=== PATIENT | male | born 1935 | race Caucasian/White ===

== ENCOUNTER 2016-10-05 09:00 | Outpatient (CLI) | payer MEDICARE | END 2016-10-05 09:01 | disposition home or self-care (01) | DX: C61 Malignant neoplasm of prostate (principal) ==

== ENCOUNTER 2016-11-19 10:45 | Outpatient (CLI) | payer MEDICARE | END 2016-11-19 10:46 | disposition home or self-care (01) | DX: C61 Malignant neoplasm of prostate (principal) ==

== ENCOUNTER 2016-12-10 10:31 | Outpatient (CLI) | payer MEDICARE ==
[2016-12-10 10:45] LABS: BASOPHILS % (AUTO) 0.9 %; EOSINOPHILS # (AUTO) 0.3 10^3/uL (0.0-0.7); EOSINOPHILS % (AUTO) 5.5 %; HCT - HEMATOCRIT 34.8 % (42.0-52.0); HGB - HEMOGLOBIN 11.5 g/dL (14.0-18.0); LYMPHOCYTES # (AUTO) 0.8 10^3/uL (1.5-3.5); LYMPHOCYTES % (AUTO) 14.5 %; MEAN CORPUSCULAR HEMOGLOBIN 31.9 pg (27.0-31.0); MEAN CORPUSCULAR HGB CONC 33.1 g/dL (32.0-36.0); MEAN CORPUSCULAR VOLUME 96.2 fL (80.0-94.0); MONOCYTES # (AUTO) 0.4 10^3/uL (0.0-1.0); MONOCYTES % (AUTO) 7.4 %; NEUTROPHILS % (AUTO) 71.7 %; RED BLOOD COUNT 3.61 10^6/uL (4.70-6.10); RED CELL DISTRIBUTION WIDTH 16.4 % (12.0-15.0); UNCORRECTED WHITE BLOOD COUNT 5.6 x10^3/uL; WHITE BLOOD COUNT 5.6 x10^3/uL (4.8-10.8)
== END 2016-12-10 10:32 | disposition home or self-care (01) ==
LOC: LAB 10:31
DX: C61 Malignant neoplasm of prostate (principal)
CPT/HCPCS: 36415; 85025

== ENCOUNTER 2017-02-08 13:36 | Outpatient (CLI) | payer MEDICARE ==
[2017-02-08 14:13] LABS: BASOPHILS % (AUTO) 0.5 %; EOSINOPHILS # (AUTO) 0.4 10^3/uL (0.0-0.7); EOSINOPHILS % (AUTO) 5.3 %; LYMPHOCYTES # (AUTO) 1.3 10^3/uL (1.5-3.5); LYMPHOCYTES % (AUTO) 18.6 %; MEAN CORPUSCULAR HEMOGLOBIN 31.1 pg (27.0-31.0); MEAN CORPUSCULAR HGB CONC 33.3 g/dL (32.0-36.0); MEAN CORPUSCULAR VOLUME 93.4 fL (80.0-94.0); MONOCYTES # (AUTO) 0.5 10^3/uL (0.0-1.0); MONOCYTES % (AUTO) 7.4 %; NEUTROPHILS # (AUTO) 4.7 10^3/uL (1.5-6.6); NEUTROPHILS % (AUTO) 68.2 %; RED BLOOD COUNT 3.85 10^6/uL (4.70-6.10); RED CELL DISTRIBUTION WIDTH 17.4 % (12.0-15.0); UNCORRECTED WHITE BLOOD COUNT 6.9 x10^3/uL; WHITE BLOOD COUNT 6.9 x10^3/uL (4.8-10.8)
[2017-02-08 14:16] LABS: ALBUMIN/GLOBULIN RATIO 1.3 (1.0-2.2); BILIRUBIN,TOTAL 0.7 mg/dL (0.2-1.0); CALCIUM 9.4 mg/dL (8.5-10.3); CREATININE 1.1 mg/dL (0.6-1.2); TOTAL PROTEIN 6.7 g/dL (6.7-8.2)
== END 2017-02-08 13:37 | disposition home or self-care (01) ==
LOC: LAB 13:36
DX: C61 Malignant neoplasm of prostate (principal); M79.89 Other specified soft tissue disorders
CPT/HCPCS: 36415; 80053; 84153; 85025

== ENCOUNTER 2017-03-15 13:44 | Outpatient (CLI) | payer MEDICARE ==
[2017-03-15 14:12] LABS: BASOPHILS % (AUTO) 0.7 %; EOSINOPHILS # (AUTO) 0.2 10^3/uL (0.0-0.7); HCT - HEMATOCRIT 37.4 % (42.0-52.0); HGB - HEMOGLOBIN 12.5 g/dL (14.0-18.0); LYMPHOCYTES % (AUTO) 16.5 %; MEAN CORPUSCULAR HEMOGLOBIN 31.7 pg (27.0-31.0); MEAN CORPUSCULAR HGB CONC 33.4 g/dL (32.0-36.0); MEAN CORPUSCULAR VOLUME 94.7 fL (80.0-94.0); MEAN PLATELET VOLUME 7.9 fL (7.4-11.4); MONOCYTES # (AUTO) 0.4 10^3/uL (0.0-1.0); MONOCYTES % (AUTO) 6.7 %; NEUTROPHILS # (AUTO) 4.6 10^3/uL (1.5-6.6); NEUTROPHILS % (AUTO) 73.1 %; RED BLOOD COUNT 3.95 10^6/uL (4.70-6.10); UNCORRECTED WHITE BLOOD COUNT 6.3 x10^3/uL; WHITE BLOOD COUNT 6.3 x10^3/uL (4.8-10.8)
[2017-03-15 14:24] LABS: ALBUMIN/GLOBULIN RATIO 1.3 (1.0-2.2); BILIRUBIN,TOTAL 0.7 mg/dL (0.2-1.0); CALCIUM 9.7 mg/dL (8.5-10.3); TOTAL PROTEIN 6.9 g/dL (6.7-8.2)
[2017-03-15 14:48] LABS: PSA TOTAL 0.44 ng/mL (0.000-2.000)
== END 2017-03-15 13:45 | disposition home or self-care (01) ==
LOC: LAB 13:44
DX: C61 Malignant neoplasm of prostate (principal); C79.51 Secondary malignant neoplasm of bone
CPT/HCPCS: 36415; 80053; 84153; 84403; 85025

== ENCOUNTER 2017-04-17 14:10 | Outpatient (CLI) | payer MEDICARE ==
[2017-04-17 14:46] LABS: BASOPHILS % (AUTO) 0.6 %; EOSINOPHILS # (AUTO) 0.3 10^3/uL (0.0-0.7); EOSINOPHILS % (AUTO) 4.5 %; HCT - HEMATOCRIT 38.3 % (42.0-52.0); HGB - HEMOGLOBIN 12.7 g/dL (14.0-18.0); LYMPHOCYTES # (AUTO) 1.1 10^3/uL (1.5-3.5); LYMPHOCYTES % (AUTO) 16.1 %; MEAN CORPUSCULAR HEMOGLOBIN 32.5 pg (27.0-31.0); MEAN CORPUSCULAR HGB CONC 33.1 g/dL (32.0-36.0); MEAN CORPUSCULAR VOLUME 97.9 fL (80.0-94.0); MEAN PLATELET VOLUME 7.9 fL (7.4-11.4); MONOCYTES # (AUTO) 0.5 10^3/uL (0.0-1.0); MONOCYTES % (AUTO) 7.3 %; NEUTROPHILS % (AUTO) 71.5 %; RED BLOOD COUNT 3.91 10^6/uL (4.70-6.10); RED CELL DISTRIBUTION WIDTH 16.2 % (12.0-15.0); UNCORRECTED WHITE BLOOD COUNT 6.9 x10^3/uL; WHITE BLOOD COUNT 6.9 x10^3/uL (4.8-10.8)
[2017-04-17 14:52] LABS: ALBUMIN/GLOBULIN RATIO 1.5 (1.0-2.2); BILIRUBIN,TOTAL 0.8 mg/dL (0.2-1.0); CALCIUM 9.7 mg/dL (8.5-10.3); POTASSIUM 3.8 mmol/L (3.5-5.0); TOTAL PROTEIN 6.8 g/dL (6.7-8.2)
== END 2017-04-17 14:11 | disposition home or self-care (01) ==
LOC: LAB 14:10
DX: C61 Malignant neoplasm of prostate (principal); C79.51 Secondary malignant neoplasm of bone
CPT/HCPCS: 36415; 80053; 84153; 85025

== ENCOUNTER 2017-04-30 13:17 | Outpatient (CLI) | payer MEDICARE ==
[2017-04-30 13:39] LABS: BASOPHILS % (AUTO) 0.5 %; EOSINOPHILS # (AUTO) 0.3 10^3/uL (0.0-0.7); EOSINOPHILS % (AUTO) 4.3 %; HGB - HEMOGLOBIN 12.9 g/dL (14.0-18.0); LYMPHOCYTES # (AUTO) 1.3 10^3/uL (1.5-3.5); LYMPHOCYTES % (AUTO) 18.8 %; MEAN CORPUSCULAR HEMOGLOBIN 32.7 pg (27.0-31.0); MEAN PLATELET VOLUME 7.6 fL (7.4-11.4); MONOCYTES # (AUTO) 0.5 10^3/uL (0.0-1.0); MONOCYTES % (AUTO) 6.8 %; NEUTROPHILS # (AUTO) 4.9 10^3/uL (1.5-6.6); NEUTROPHILS % (AUTO) 69.6 %; RED BLOOD COUNT 3.94 10^6/uL (4.70-6.10); RED CELL DISTRIBUTION WIDTH 15.6 % (12.0-15.0)
[2017-04-30 14:00] LABS: ALBUMIN/GLOBULIN RATIO 1.5 (1.0-2.2); BILIRUBIN,TOTAL 0.8 mg/dL (0.2-1.0); CALCIUM 10.2 mg/dL (8.5-10.3); CREATININE 1.1 mg/dL (0.6-1.2); POTASSIUM 3.9 mmol/L (3.5-5.0); TOTAL PROTEIN 7.2 g/dL (6.7-8.2)
== END 2017-04-30 13:18 | disposition home or self-care (01) ==
LOC: LAB 13:17
DX: C61 Malignant neoplasm of prostate (principal); C79.51 Secondary malignant neoplasm of bone
CPT/HCPCS: 36415; 80053; 84153; 85025

== ENCOUNTER 2017-05-15 20:19 | Outpatient (CLI) | payer MEDICARE | END 2017-05-15 20:20 | disposition critical access hospital (66) | LOC: EMS 20:19 | PROVIDERS: ATTEND Surgery | DX: R22.0 Localized swelling, mass and lump, head (principal); W01.198A Fall on same level from slipping, tripping and stumbling with subsequent striking against other object, initial encounter; Y92.012 Bathroom of single-family (private) house as the place of occurrence of the external cause | CPT/HCPCS: A0425; A0429 ==

== ENCOUNTER 2017-07-03 14:02 | Outpatient (CLI) | payer MEDICARE ==
[2017-07-03 14:50] LABS: BASOPHILS % (AUTO) 0.5 %; EOSINOPHILS # (AUTO) 0.4 10^3/uL (0.0-0.7); HCT - HEMATOCRIT 34.8 % (42.0-52.0); HGB - HEMOGLOBIN 11.8 g/dL (14.0-18.0); LYMPHOCYTES # (AUTO) 0.9 10^3/uL (1.5-3.5); LYMPHOCYTES % (AUTO) 15.1 %; MEAN CORPUSCULAR HEMOGLOBIN 34.3 pg (27.0-31.0); MEAN CORPUSCULAR HGB CONC 33.9 g/dL (32.0-36.0); MEAN CORPUSCULAR VOLUME 101.2 fL (80.0-94.0); MEAN PLATELET VOLUME 7.9 fL (7.4-11.4); MONOCYTES # (AUTO) 0.5 10^3/uL (0.0-1.0); MONOCYTES % (AUTO) 7.2 %; NEUTROPHILS # (AUTO) 4.4 10^3/uL (1.5-6.6); NEUTROPHILS % (AUTO) 70.2 %; RED BLOOD COUNT 3.43 10^6/uL (4.70-6.10); RED CELL DISTRIBUTION WIDTH 15.1 % (12.0-15.0); UNCORRECTED WHITE BLOOD COUNT 6.3 x10^3/uL; WHITE BLOOD COUNT 6.3 x10^3/uL (4.8-10.8)
[2017-07-03 15:04] LABS: ALBUMIN/GLOBULIN RATIO 1.3 (1.0-2.2); BILIRUBIN,TOTAL 0.8 mg/dL (0.2-1.0); CALCIUM 9.2 mg/dL (8.5-10.3); POTASSIUM 3.9 mmol/L (3.5-5.0); TOTAL PROTEIN 6.8 g/dL (6.7-8.2)
== END 2017-07-03 14:03 | disposition home or self-care (01) ==
LOC: LAB 14:02
DX: C61 Malignant neoplasm of prostate (principal)
CPT/HCPCS: 36415; 80053; 84153; 85025

== ENCOUNTER 2017-07-28 03:47 | Outpatient (CLI) | payer MEDICARE | END 2017-07-28 03:48 | disposition EMS.NT | LOC: EMS 03:47 | PROVIDERS: ATTEND Surgery | DX: Z03.89 Encounter for observation for other suspected diseases and conditions ruled out (principal); W19.XXXA Unspecified fall, initial encounter; Y92.002 Bathroom of unspecified non-institutional (private) residence as the place of occurrence of the external cause ==

== ENCOUNTER 2017-08-08 14:04 | Outpatient (CLI) | payer MEDICARE ==
[2017-08-08 14:30] LABS: BASOPHILS % (AUTO) 0.6 %; EOSINOPHILS # (AUTO) 0.3 10^3/uL (0.0-0.7); EOSINOPHILS % (AUTO) 4.8 %; HGB - HEMOGLOBIN 11.2 g/dL (14.0-18.0); LYMPHOCYTES % (AUTO) 14.7 %; MEAN CORPUSCULAR HEMOGLOBIN 33.1 pg (27.0-31.0); MEAN CORPUSCULAR HGB CONC 32.5 g/dL (32.0-36.0); MEAN PLATELET VOLUME 7.6 fL (7.4-11.4); MONOCYTES # (AUTO) 0.5 10^3/uL (0.0-1.0); MONOCYTES % (AUTO) 7.7 %; NEUTROPHILS # (AUTO) 4.8 10^3/uL (1.5-6.6); NEUTROPHILS % (AUTO) 72.2 %; PLT - PLATELET COUNT 239 10^3/uL (130-450); RED BLOOD COUNT 3.38 10^6/uL (4.70-6.10); RED CELL DISTRIBUTION WIDTH 14.9 % (12.0-15.0); WHITE BLOOD COUNT 6.7 x10^3/uL (4.8-10.8)
[2017-08-08 14:43] LABS: ALBUMIN 3.9 g/dL (3.2-5.5); ALBUMIN/GLOBULIN RATIO 1.3 (1.0-2.2); CALCIUM 9.7 mg/dL (8.5-10.3); CREATININE 0.9 mg/dL (0.6-1.2); TOTAL PROTEIN 6.9 g/dL (6.7-8.2)
== END 2017-08-08 14:05 | disposition home or self-care (01) ==
LOC: LAB 14:04
DX: C61 Malignant neoplasm of prostate (principal)
CPT/HCPCS: 36415; 80053; 84153; 85025

== ENCOUNTER 2017-09-09 04:13 | Outpatient (CLI) | payer MEDICARE | END 2017-09-09 04:14 | disposition EMS.NT | LOC: EMS 04:13 | PROVIDERS: ATTEND Surgery | DX: Z03.89 Encounter for observation for other suspected diseases and conditions ruled out (principal); W07.XXXA Fall from chair, initial encounter; Y92.009 Unspecified place in unspecified non-institutional (private) residence as the place of occurrence of the external cause ==

== ENCOUNTER 2017-09-25 02:59 | Outpatient (CLI) | payer MEDICARE | END 2017-09-25 03:00 | disposition critical access hospital (66) | LOC: EMS 02:59 | PROVIDERS: ATTEND Surgery | DX: M25.562 Pain in left knee (principal); M25.561 Pain in right knee; R53.1 Weakness; W01.0XXA Fall on same level from slipping, tripping and stumbling without subsequent striking against object, initial encounter; Y92.003 Bedroom of unspecified non-institutional (private) residence as the place of occurrence of the external cause | CPT/HCPCS: A0425; A0429 ==

== ENCOUNTER 2017-09-25 03:10 | Emergency (ER) | payer MEDICARE ==
--- NOTE | 2017-09-25 03:41 | ED Physician Documentation ---
PD HPI LOWER EXT INJURY - Stated complaint Stated Complaint: GLF - Chief complaint Chief Complaint: Trauma Ext - History obtained from History obtained from: Patient, Family, EMS - History of Present Illness PD HPI LOW EXT INJURY LOCATION: Both, Knee Type of injury: Fall Where injury occurred: Home Timing - onset: Today Timing - details: Abrupt onset Worsened by: Moving, Palpating Similar symptoms before: Work up / diagnostics Recently seen: Clinic - Additional information Additional information: Patient is an 81 year old male with a history of prostate CA, anasarca with severe scrotal swelling and multiple falls who was brought in after falling and landing on his knees. According to patient and family patient had some imaging done today and had followed up with his doctor who started him on lasix. They decided to take the lasix before going to bed. patient had gotten up to go to the bathroom and tripped on some pillows landing on his knees. patient denies any loc or head trauma. Patient was unable to get up even with the help of his so they called ems who brought him in for evaluation. Upon initial evaluation patient stated that he only wanted to get his knees checked out. Review of Systems Constitutional: denies: Fever, Chills Eyes: denies: Decreased vision, Photophobia Ears: reports: Reviewed and negative Nose: reports: Reviewed and negative Cardiac: denies: Chest pain / pressure GI: denies: Nausea, Vomiting Skin: denies: Abrasion (s), Laceration (s) Musculoskeletal: reports: Extremity pain, Joint pain, Extremity swelling, Joint swelling Neurologic: reports: Generalized weakness. denies: Focal weakness, Numbness, Syncope, Head injury, LOC PD PAST MEDICAL HISTORY - Past Medical History Past Medical History: Yes Cardiovascular: [place] Respiratory: None Neuro: None Endocrine/Autoimmune: None GI: None : Other HEENT: Other Psych: None Musculoskeletal: None Derm: None - Past Surgical History Past Surgical History: Yes General: Appendectomy Ortho: Arthroscopic surgery HEENT: Other - Present Medications Home Medications: Ambulatory Orders Medication Instructions Recorded Confirmed Simvastatin [Zocor] 20 mg PO DAILY 06/22/16 09/14/16 Acetaminophen [Tylenol Extra 500 mg PO Q8HR PRN 07/13/16 09/14/16 Strength] Loratadine [Claritin] 1 tab PO DAILY PRN 07/13/16 09/14/16 Multivitamin [Multiple Vitamins] 1 each PO DAILY 07/13/16 09/14/16 Apixaban [Eliquis] 5 mg PO BID 08/03/16 09/14/16 Calcium Carbonate/Vitamin D3 1 tab PO DAILY 08/03/16 09/14/16 [Calcium 500-Vit D3 600 Tablet] Furosemide 20 mg PO DAILY 09/21/16 10/05/16 Ferrous Sulfate 1 tab PO DAILY 09/25/17 09/25/17 Leuprolide [Lupron] 09/25/17 - Allergies Allergies/Adverse Reactions: Allergies Allergy/AdvReac Type Severity Reaction Status Date / Time Penicillins Allergy Rash Verified 09/25/17 03:34 - Social History Does the pt smoke?: No Smoking Status: Never smoker Does the pt drink ETOH?: No Does the pt have substance abuse?: No - Immunizations Immunizations are current?: Yes Immunizations: TDAP current <10years - POLST Patient has POLST: No PD ED PE NORMAL - General General: Alert and oriented X 3 - HEENT HEENT: Atraumatic, PERRL - Neck Neck: No bony TTP - Cardiac Cardiac: RRR - Respiratory Respiratory: No respiratory distress - Neuro Neuro: Alert and oriented X 3 Eye Opening: Spontaneous Motor: Obeys Commands Verbal: Oriented GCS Score: 15 PD ED PE EXPANDED - Abdomen Abdomen: Other (pitting edema/anasarca of lower abdomen) - Male Male : Other (endematous scrotum) - Extremities Extremities: Right knee (mild tenderness), Left knee (mild tenderness), Pedal edema bilateral Results - Vitals Vitals: Vital Signs - 24 hr 09/25/17 03:12 Temperature 36.0 C L Heart Rate 94 Respiratory 18 Rate Blood Pressure 133/70 H O2 Saturation 95 Oxygen O2 Source Room air - Rads (name of study) bilateral knee x-rays Radiology: Final report received, EMP read contemporaneously (no acute fractures or dislocation) PD MEDICAL DECISION MAKING - ED course Complexity details: reviewed old records, reviewed results, re-evaluated patient , considered differential, d/w patient, d/w family ED course: Patient was seen and examined at bedside. Imaging was ordered. When patient returned from imaging a lengthy discussion was had with patient and his about there wishes. They stated that they just wanted to get the knees checked out and they were following up with their doctors for the other issues. They were made aware that it was probably time to seek extra help as the patient continues to fall and the is unable to help. patient and family stated they understood and that they would follow up with their doctor. Departure - Departure Disposition: 01 Home, Self Care Clinical Impression: Fall from ground level Condition: Good Instructions: Falls Prevent Exercise, Falls Prevent Stay Active Follow-Up: Elsy Carson MD [Primary Care Provider] - Comments: Your x-rays today were within normal limits. there is no acute fracture or dislocation. The bigger issue is your recurrent falls. It is probably time you work with your doctor to establish extra help at home. You should also take your lasix in the morning instead of night and sleep with the urinals next to your bed. You may return to the emergency department at any time for new, worsening or uncontrollable symptoms.
--- NOTE | 2017-09-25 04:37 | XRAY Report ---
EXAM: LEFT KNEE RADIOGRAPHY EXAM DATE: 09/25/2017 04:23 AM. CLINICAL HISTORY: Pain after injury. COMPARISON: 03/15/2011. TECHNIQUE: 4 views. FINDINGS: Bones: No acute fracture seen. Joints: No dislocation. Mild degenerative joint disease in the medial and patellofemoral compartments . Minimal if any joint effusion. Soft Tissues: Soft tissue swelling. IMPRESSION: 1. No acute fracture or dislocation seen. 2. Very mild degenerative changes. Minimal if any joint effusion. [facility] Referring Provider Line: [phone] SITE ID: [id number]
--- NOTE | 2017-09-25 04:37 | XRAY Preliminary Report ---
Exam: XR KNEE 4 VIEW LT IMPRESSION: 1. No acute fracture or dislocation seen. 2. Very mild degenerative changes. Minimal if any joint effusion. [facility] SITE ID: [id number]
--- NOTE | 2017-09-25 04:39 | XRAY Report ---
EXAM: RIGHT KNEE RADIOGRAPHY EXAM DATE: 09/25/2017 04:24 AM. CLINICAL HISTORY: Pain after injury. COMPARISON: None. TECHNIQUE: 4 views. FINDINGS: Bones: No acute fracture seen. Joints: No dislocation or joint effusion. Joint spaces are relatively well preserved for age. Soft Tissues: Soft tissue swelling. IMPRESSION: 1. No acute osseous abnormality seen. [facility] Referring Provider Line: [phone] SITE ID: [id number]
--- NOTE | 2017-09-25 04:39 | XRAY Preliminary Report ---
Exam: XR KNEE 4 VIEW RT IMPRESSION: 1. No acute osseous abnormality seen. [facility] SITE ID: [id number]
[2017-09-25 06:03] VITALS: BP 133/76
== END 2017-09-25 06:10 | disposition home or self-care (01) ==
LOC: ED 03:10
DX: Z04.8 Encounter for examination and observation for other specified reasons (principal); Z91.81 History of falling; N50.89 Other specified disorders of the male genital organs; I25.2 Old myocardial infarction
CPT/HCPCS: 99283

== ENCOUNTER 2017-09-27 12:29 | Outpatient (CLI) | payer MEDICARE | END 2017-09-27 12:30 | disposition home or self-care (01) | LOC: EMS 12:29 | PROVIDERS: ATTEND Surgery | DX: Z03.89 Encounter for observation for other suspected diseases and conditions ruled out (principal) ==

== ENCOUNTER 2017-10-17 10:26 | Outpatient (CLI) | payer MEDICARE ==
--- NOTE | 2017-10-17 12:22 | Ultrasound Report ---
LIMITED RETROPERITONEAL ULTRASOUND: 10/17/2017 CLINICAL INDICATION: Edema, question IVC thrombus or occlusion. TECHNIQUE: Real-time sonographic vascular imaging was performed by the perfume maker through the abdomen utilizing both color-flow and Doppler spectral analysis. Multiple energy conservation representative static images were saved for review. FINDINGS: The abdominal aorta measures 2.4 cm proximally, and 2.3 cm in the mid portion. There is mild distal ectasia, measuring up to 2.8 cm, without nate aneurysm formation. The right common iliac artery is mildly dilated, measuring 2.1 cm. The left common iliac artery is normal in caliber. The inferior vena cava is widely patent throughout. There is no evidence of venous thrombosis or obstructing mass. Incidental note is made of a small right pleural effusion. IMPRESSION: NO EVIDENCE OF IVC THROMBUS OR COMPRESSION. TD: 10/17/2017 12:21
== END 2017-10-17 10:27 | disposition home or self-care (01) ==
LOC: DI 10:26
PROVIDERS: ATTEND Internal Medicine
DX: R60.9 Edema, unspecified (principal)
CPT/HCPCS: 76775

== ENCOUNTER 2017-10-25 12:13 | Outpatient (CLI) | payer MEDICARE ==
[2017-10-25 12:35] LABS: BASOPHILS # (AUTO) 0.1 10^3/uL (0.0-0.1); BASOPHILS % (AUTO) 1.3 %; EOSINOPHILS # (AUTO) 0.3 10^3/uL (0.0-0.7); EOSINOPHILS % (AUTO) 4.5 %; HGB - HEMOGLOBIN 10.5 g/dL (14.0-18.0); LYMPHOCYTES # (AUTO) 1.2 10^3/uL (1.5-3.5); LYMPHOCYTES % (AUTO) 17.8 %; MEAN CORPUSCULAR HEMOGLOBIN 32.6 pg (27.0-31.0); MEAN CORPUSCULAR HGB CONC 32.4 g/dL (32.0-36.0); MEAN CORPUSCULAR VOLUME 100.7 fL (80.0-94.0); MEAN PLATELET VOLUME 7.5 fL (7.4-11.4); MONOCYTES # (AUTO) 0.7 10^3/uL (0.0-1.0); MONOCYTES % (AUTO) 9.5 %; NEUTROPHILS # (AUTO) 4.6 10^3/uL (1.5-6.6); NEUTROPHILS % (AUTO) 66.9 %; PLT - PLATELET COUNT 264 10^3/uL (130-450); RED BLOOD COUNT 3.22 10^6/uL (4.70-6.10); RED CELL DISTRIBUTION WIDTH 15.9 % (12.0-15.0); WHITE BLOOD COUNT 6.9 x10^3/uL (4.8-10.8)
[2017-10-25 12:57] LABS: ALBUMIN 3.6 g/dL (3.2-5.5); ALBUMIN/GLOBULIN RATIO 0.9 (1.0-2.2); BILIRUBIN,TOTAL 0.7 mg/dL (0.2-1.0); CALCIUM 9.4 mg/dL (8.5-10.3); CREATININE 1.1 mg/dL (0.6-1.2); TOTAL PROTEIN 7.4 g/dL (6.7-8.2)
== END 2017-10-25 12:14 | disposition home or self-care (01) ==
LOC: LAB 12:13
PROVIDERS: ATTEND Internal Medicine
DX: R60.9 Edema, unspecified (principal); C61 Malignant neoplasm of prostate; I48.91 Unspecified atrial fibrillation; I25.10 Atherosclerotic heart disease of native coronary artery without angina pectoris; Z79.899 Other long term (current) drug therapy
CPT/HCPCS: 36415; 80053; 83880; 84443; 85025

== ENCOUNTER 2017-12-24 17:44 | Outpatient (CLI) | payer MEDICARE ==
[2017-12-24 18:24] LABS: BASOPHILS % (AUTO) 0.4 %; EOSINOPHILS # (AUTO) 0.3 10^3/uL (0.0-0.7); EOSINOPHILS % (AUTO) 3.5 %; HGB - HEMOGLOBIN 11.6 g/dL (14.0-18.0); LYMPHOCYTES # (AUTO) 0.9 10^3/uL (1.5-3.5); LYMPHOCYTES % (AUTO) 11.4 %; MEAN CORPUSCULAR HEMOGLOBIN 32.5 pg (27.0-31.0); MEAN CORPUSCULAR HGB CONC 32.3 g/dL (32.0-36.0); MEAN CORPUSCULAR VOLUME 100.5 fL (80.0-94.0); MEAN PLATELET VOLUME 7.5 fL (7.4-11.4); MONOCYTES # (AUTO) 0.7 10^3/uL (0.0-1.0); MONOCYTES % (AUTO) 9.3 %; NEUTROPHILS # (AUTO) 5.7 10^3/uL (1.5-6.6); NEUTROPHILS % (AUTO) 75.4 %; PLT - PLATELET COUNT 222 10^3/uL (130-450); RED BLOOD COUNT 3.58 10^6/uL (4.70-6.10); RED CELL DISTRIBUTION WIDTH 16.5 % (12.0-15.0); WHITE BLOOD COUNT 7.5 x10^3/uL (4.8-10.8)
[2017-12-24 18:28] LABS: ALBUMIN 3.5 g/dL (3.2-5.5); BILIRUBIN,TOTAL 0.8 mg/dL (0.2-1.0); CALCIUM 9.4 mg/dL (8.5-10.3); CREATININE 0.9 mg/dL (0.6-1.2); TOTAL PROTEIN 6.9 g/dL (6.7-8.2)
[2017-12-24 18:44] LABS: THYROID STIMULATING HORMONE 3.1 uIU/mL (0.34-5.60)
== END 2017-12-24 17:45 | disposition home or self-care (01) ==
LOC: LAB 17:44
PROVIDERS: ATTEND Internal Medicine
DX: C61 Malignant neoplasm of prostate (principal); R53.83 Other fatigue; R53.81 Other malaise; R51 Headache; R06.00 Dyspnea, unspecified; I50.9 Heart failure, unspecified
CPT/HCPCS: 36415; 80053; 82607; 83880; 84153; 84443; 85025

== ENCOUNTER 2018-03-03 14:13 | Outpatient (CLI) | payer MEDICARE ==
[2018-03-03 15:13] LABS: BILIRUBIN,URINE NEGATIVE (NEGATIVE); CLARITY,URINE CLEAR (CLEAR); GLUCOSE, URINE (UA) NEGATIVE (NEGATIVE); KETONES,URINE (UA) NEGATIVE (NEGATIVE); LEUKOCYTE ESTERASE, URINE NEGATIVE (NEGATIVE); NITRITE,URINE NEGATIVE (NEGATIVE); OCCULT BLOOD,URINE MODERATE (NEGATIVE); PH,URINE 5.5 PH (5.0-7.5); PROTEIN,URINE 30 mg/dL (NEGATIVE); UROBILINOGEN,URINE 0.2 (NORMAL) E.U./dL (NORMAL)
[2018-03-03 15:26] LABS: BACTERIA,URINE None Seen /HPF (None Seen); SQUAMOUS EPITHELIAL CELL,UR NONE SEEN (<= Few)
== END 2018-03-03 14:14 | disposition home or self-care (01) ==
LOC: LAB 14:13
PROVIDERS: ATTEND Internal Medicine
DX: R53.83 Other fatigue (principal)
CPT/HCPCS: 81001; 84443; 87086

== ENCOUNTER 2018-04-09 22:54 | Outpatient (CLI) | payer MEDICARE | END 2018-04-09 22:55 | disposition critical access hospital (66) | LOC: EMS 22:54 | PROVIDERS: ATTEND Surgery | DX: S01.91XA Laceration without foreign body of unspecified part of head, initial encounter (principal); M25.519 Pain in unspecified shoulder; W01.198A Fall on same level from slipping, tripping and stumbling with subsequent striking against other object, initial encounter; Y93.01 Activity, walking, marching and hiking; Y92.009 Unspecified place in unspecified non-institutional (private) residence as the place of occurrence of the external cause | CPT/HCPCS: A0425; A0429 ==

== ENCOUNTER 2018-04-09 23:02 | Emergency (ER) | payer MEDICARE ==
--- NOTE | 2018-04-09 23:54 | CT Report ---
Reason: fall on coumadin Procedure Date: 04/09/2018 Accession Number: [id number] / [id number] Procedure: CT - Head W/O CPT Code: FULL RESULT: EXAM: CT HEAD EXAM DATE: 04/09/2018 11:37 PM. CLINICAL HISTORY: Fall on coumadin. COMPARISON: HEAD W/O 05/15/2017 8:44 PM. TECHNIQUE: Multiaxial CT images were obtained from the foramen magnum to the vertex. Reformats: Sagittal and coronal. IV contrast: None. In accordance with CT protocol optimization, one or more of the following dose reduction techniques were utilized for this exam: automated exposure control, adjustment of mA and/or KV based on patient size, or use of iterative reconstructive technique. FINDINGS: Parenchyma: No intraparenchymal hemorrhage. No evidence of mass, midline shift, or CT findings of acute infarction. [place]-white differentiation is distinct. Diffuse chronic microangiopathic white matter changes are evident. Extraaxial Spaces: Normal for age. No subdural or epidural collections identified. Ventricles: The ventricles and cortical sulci are enlarged, consistent with age-related tissue loss. Sinuses and orbits: Imaged paranasal sinuses, orbits, and mastoids show no significant abnormality. Bones: No evidence of fracture or calvarial defect. Other: Mild soft tissue swelling overlies the right zygomatic region on image 3, 6. Right supraorbital soft tissue swelling noted. No radiopaque foreign bodies. IMPRESSION: 1. No acute intracranial abnormality. 2. Moderate microangiopathic ischemic changes. 3. Moderate cerebral and cerebellar volume loss. 4. Right perimaxillary and supraorbital soft tissue contusions.
[2018-04-10] MEDS ORDERED: TETANUS/DIPHTHERIA/PERTUSSIS 0.5 ML SYRINGE IM ONE (00:27)
--- NOTE | 2018-04-10 00:27 | ED Physician Documentation ---
PD HPI HEAD INJURY - Stated complaint Stated Complaint: GLF - Chief complaint Chief Complaint: Trauma Hd/Nk - History obtained from History obtained from: Patient, EMS - History of Present Illness Mechanism of head injury: Fell Where head injury occurred: Home Timing - onset: Today Location of injury: Left Quality of pain: Pain Associated symptoms: No: LOC, AMS, Neck pain Contributing factors: Anticoagulated Similar symptoms before: Has not had sx before Recently seen: Not recently seen - Additional information Additional information: Patient is an 82 year old male who is presenting to the emergency department after falling. patient normally ambulates with a walker and today was walking and tripped on his slippers. Patient fell forward hitting the side of his head on the fireplace guard. Patient denies loc and neck pain but is on novel anticoagulants. Review of Systems Ten Systems: 10 systems reviewed and negative Eyes: denies: Loss of vision, Decreased vision Nose: denies: Epistaxis Skin: reports: Laceration (s) Neurologic: reports: Head injury. denies: Confused, Altered mental status, LOC PD PAST MEDICAL HISTORY - Past Medical History Cardiovascular: [place] Respiratory: None Endocrine/Autoimmune: None GI: None : Other HEENT: Other Psych: None Musculoskeletal: None Derm: None - Past Surgical History Past Surgical History: Yes General: Appendectomy Ortho: Arthroscopic surgery HEENT: Other - Present Medications Home Medications: Ambulatory Orders Medication Instructions Recorded Confirmed Simvastatin [Zocor] 20 mg PO DAILY 06/22/16 03/03/18 Acetaminophen [Tylenol Extra 500 mg PO Q8HR PRN 07/13/16 03/03/18 Strength] Loratadine [Claritin] 1 tab PO DAILY PRN 07/13/16 03/03/18 Multivitamin [Multiple Vitamins] 1 each PO DAILY 07/13/16 03/03/18 Apixaban [Eliquis] 5 mg PO BID 08/03/16 03/03/18 Calcium Carbonate/Vitamin D3 1 tab PO DAILY 08/03/16 03/03/18 [Calcium 500-Vit D3 600 Tablet] Furosemide 40 mg PO DAILY 09/21/16 03/03/18 Ferrous Sulfate 1 tab PO DAILY 09/25/17 03/03/18 Leuprolide [Lupron] 30 mg INJ DAILY 09/25/17 03/03/18 Potassium Bicarbonate/Cit AC 20 meq PO DAILY 11/25/17 03/03/18 [Potassium 25 Meq Tablet Eff] Vit A/Vit C/Vit E/Zinc/Copper 1 cap PO DAILY 11/25/17 03/03/18 [Preservision Areds Softgel] - Allergies Allergies/Adverse Reactions: Allergies Allergy/AdvReac Type Severity Reaction Status Date / Time Penicillins Allergy Rash Verified 04/09/18 23:10 - Social History Does the pt smoke?: No Smoking Status: Never smoker Does the pt drink ETOH?: No Does the pt have substance abuse?: No - Immunizations Immunizations are current?: Yes Immunizations: TDAP current <10years - POLST Patient has POLST: No PD ED PE NORMAL - Vitals Vital signs reviewed: Yes - General General: Alert and oriented X 3 - Neck Neck: No bony TTP - Cardiac Cardiac: RRR - Respiratory Respiratory: No respiratory distress - Neuro Neuro: Alert and oriented X 3, Normal speech Eye Opening: Spontaneous Motor: Obeys Commands Verbal: Oriented GCS Score: 15 PD ED PE EXPANDED - HEENT HEENT Visual: 1 - laceration (2 cm laceration) 2 - laceration (2cm skin avulsion) Results - Vitals Vitals: Vital Signs - 24 hr 04/09/18 23:05 Temperature 36.3 C L Heart Rate 92 Respiratory 17 Rate Blood Pressure 112/81 H O2 Saturation 93 Oxygen O2 Source Room air - Rads (name of study) ct head Radiology: Final report received (no acute intracranial pathology) Procedures - Laceration (location) right eyebrow Length in cm: 2 Wound type: Linear Neurovascular status: Sensory intact, Vascular intact Wound Preparation: Chlorhexadine Skin layer closure: Steri strips Other: Patient tolerated well, No complications, Tetanus booster given Complexity: Simple right scalp Length in cm: 2 Wound type: Flap Neurovascular status: Vascular intact Wound Preparation: Chlorhexadine Skin layer closure: Dermabond Other: Patient tolerated well Complexity: Simple PD MEDICAL DECISION MAKING - ED course Complexity details: reviewed old records, reviewed results, re-evaluated patient, considered differential, d/w patient, d/w family ED course: Patient was seen and examined at bedside. due to the anticoagulant use and the head trauma imaging was ordered. When patient returned results were reviewed. there was no acute fracture or dislocation. patient's lacerations were cleaned and repaired. patient required no further work up and was stable for discharge with outpatient follow up. - Sepsis Event Vital Signs: Vital Signs - 24 hr 04/09/18 23:05 Temperature 36.3 C L Heart Rate 92 Respiratory 17 Rate Blood Pressure 112/81 H O2 Saturation 93 Oxygen O2 Source Room air Departure - Departure Disposition: 01 Home, Self Care Clinical Impression: Laceration of head Condition: Good Instructions: ED Laceration Facial Sutr Tape Follow-Up: primary,care provider [Other] Comments: there was no intracranial abnormalities. You should keep the wound clean and dry. You can take tylenol as needed for pain. You should replace the steri s trip if one falls of in the next few days. You should follow up with your doctor for routine care. You should return to the emergency department for new, worsening or uncontrollable symptoms. Discharge Date/Time: 04/10/18 01:45
[2018-04-10 01:51] VITALS: BP 132/86
== END 2018-04-10 01:45 | disposition home or self-care (01) ==
LOC: EDUNIT# → ED 23:02
DX: S01.111A Laceration without foreign body of right eyelid and periocular area, initial encounter (principal); S01.01XA Laceration without foreign body of scalp, initial encounter; W18.09XA Striking against other object with subsequent fall, initial encounter; Y92.009 Unspecified place in unspecified non-institutional (private) residence as the place of occurrence of the external cause; I25.2 Old myocardial infarction; Z79.01 Long term (current) use of anticoagulants; Z23 Encounter for immunization
CPT/HCPCS: 12001; 70450; 90471; 99283

== ENCOUNTER 2018-05-13 16:03 | Inpatient (IN) | payer MEDICARE ==
--- NOTE | 2018-05-13 16:26 | ED Physician Documentation ---
History of Present Illness - Stated complaint Stated Complaint: SOA/CP - Chief complaint Chief Complaint: Cardiac - History obtained from History obtained from: Patient, Family - History of Present Illness Timing: How many days ago (several days) Pain level max: 0 Pain level now: 0 Improved by: rest Worsened by: exertion - Additonal information Additional information: Patient is an 82-year-old male who has a history of metastatic prostate cancer, congestive heart failure and acute DC. He states for the past several days has had more difficulty breathing than usual. He is more fatigued than usual. Denies any chest pain to me. He also feels more swollen than usual. No fevers. Does not use inhalers at home. no COPD history. Review of Systems Ten Systems: 10 systems reviewed and negative Constitutional: denies: Fever, Chills Ears: denies: Ear pain Nose: denies: Rhinorrhea / runny nose, Congestion Throat: denies: Sore throat Cardiac: denies: Palpitations Respiratory: reports: Dyspnea, Wheezing. denies: Cough GI: denies: Abdominal Pain, Vomiting, Diarrhea Skin: denies: Rash Musculoskeletal: denies: Neck pain, Back pain PD PAST MEDICAL HISTORY - Past Medical History Past Medical History: Yes Cardiovascular: [place] Respiratory: None Endocrine/Autoimmune: None GI: None : Other HEENT: Other Psych: None Musculoskeletal: None Derm: None - Past Surgical History Past Surgical History: Yes General: Appendectomy Ortho: Arthroscopic surgery HEENT: Other - Present Medications Home Medications: Ambulatory Orders Medication Instructions Recorded Confirmed Simvastatin [Zocor] 20 mg PO DAILY 06/22/16 04/14/18 Acetaminophen [Tylenol Extra 500 mg PO Q8HR PRN 07/13/16 04/14/18 Strength] Loratadine [Claritin] 1 tab PO DAILY PRN 07/13/16 04/14/18 Multivitamin [Multiple Vitamins] 1 each PO DAILY 07/13/16 04/14/18 Apixaban [Eliquis] 5 mg PO BID 08/03/16 04/14/18 Calcium Carbonate/Vitamin D3 1 tab PO DAILY 08/03/16 04/14/18 [Calcium 500-Vit D3 600 Tablet] Furosemide 40 mg PO DAILY 09/21/16 04/14/18 Ferrous Sulfate 1 tab PO DAILY 09/25/17 04/14/18 Leuprolide [Lupron] 30 mg INJ 09/25/17 04/14/18 Potassium Bicarbonate/Cit AC 10 meq PO DAILY 11/25/17 04/14/18 [Potassium 25 Meq Tablet Eff] Vit A/Vit C/Vit E/Zinc/Copper 1 cap PO DAILY 11/25/17 04/14/18 [Preservision Areds Softgel] Enzalutamide [Xtandi] 160 mg PO DAILY 04/14/18 04/14/18 - Allergies Allergies/Adverse Reactions: Allergies Allergy/AdvReac Type Severity Reaction Status Date / Time Penicillins Allergy Rash Verified 05/13/18 16:10 - Social History Does the pt smoke?: No Smoking Status: Never smoker Does the pt drink ETOH?: No Does the pt have substance abuse?: No - Immunizations Immunizations are current?: Yes Immunizations: TDAP current <10years - POLST Patient has POLST: No PD ED PE NORMAL - Vitals Vital signs reviewed: Yes - General General: Alert and oriented X 3, No acute distress - HEENT HEENT: Moist mucous membranes - Neck Neck: Supple, no meningeal sign - Cardiac Cardiac: RRR - Respiratory Respiratory: No respiratory distress, Other (Mild wheezing and crackles bilaterally) - Abdomen Abdomen: Soft, Non tender, Non distended - Derm Derm: Warm and dry - Extremities Extremities: Other (2+ pitting bilateral lower extremity edema) - Neuro Neuro: Alert and oriented X 3 - Psych Psych: Normal mood, Normal affect Results - Vitals Vitals: Vital Signs - 24 hr 05/13/18 05/13/18 05/13/18 16:06 16:44 17:00 Temperature 36.0 C L Heart Rate 77 78 83 Respiratory 18 20 23 Rate Blood Pressure 139/91 H 117/77 126/89 H O2 Saturation 92 97 93 05/13/18 05/13/18 05/13/18 17:33 17:55 18:00 Temperature Heart Rate 105 H 107 H Respiratory 21 24 Rate Blood Pressure 127/68 116/95 H O2 Saturation 86 L 87 L 94 Oxygen O2 Source Room air - EKG (time done) 1614 Rate: Rate (enter#) (101) Rhythm: Atrial fibrillation, Other (PVCs) [place]: Normal Intervals: Normal [place] QRS: Normal Ischemia: Normal ST segments - Labs Labs: Laboratory Tests 05/13/18 05/13/18 05/13/18 16:28 16:28 16:28 WBC 7.9 RBC 3.58 L Hgb 12.3 L Hct 37.4 L MCV 104.4 H MCH 34.4 H MCHC 33.0 RDW 17.8 H Plt Count 254 MPV 8.4 Neut # (Auto) 5.9 Lymph # (Auto) 0.8 L Schley # (Auto) 0.8 Eos # (Auto) 0.2 Baso # (Auto) 0.1 Absolute Nucleated RBC 0.01 Nucleated RBC % 0.1 Sodium 134 L Potassium 3.7 Chloride 95 L Carbon Dioxide 29 Anion Gap 10.0 BUN 45 H Creatinine 1.0 Estimated GFR (MDRD) 71 L Glucose 122 H Calcium 9.8 Total Bilirubin 1.9 H AST 44 H ALT 24 Alkaline Phosphatase 106 Troponin I 0.04 B-Natriuretic Peptide Total Protein 7.5 Albumin 3.6 Globulin 3.9 Albumin/Globulin Ratio 0.9 L Lipase 15 L 05/13/18 16:28 WBC RBC Hgb Hct MCV MCH MCHC RDW Plt Count MPV Neut # (Auto) Lymph # (Auto) Schley # (Auto) Eos # (Auto) Baso # (Auto) Absolute Nucleated RBC Nucleated RBC % Sodium Potassium Chloride Carbon Dioxide Anion Gap BUN Creatinine Estimated GFR (MDRD) Glucose Calcium Total Bilirubin AST ALT Alkaline Phosphatase Troponin I B-Natriuretic Peptide 1228 H Total Protein Albumin Globulin Albumin/Globulin Ratio Lipase - Rads (name of study) cxr Radiology: Prelim report reviewed, EMP read contemporaneously, See rad report (Probable moderate sized right pleural effusion with right basilar atelectasis versus pneumonia. Perihilar interstitial edema versus airways inflammatory disease. ) PD MEDICAL DECISION MAKING - ED course Complexity details: reviewed results, re-evaluated patient, considered differential, d/w patient ED course: Patient is an 82-year-old male who presents to the emergency department with a CHF exacerbation, right-sided pleural effusion and pulmonary edema. Desats to 86% when just standing at the bedside. Given IV Lasix and will place in observation for diuresis and further care. Discussed the case with Dr. Weinstein, hospitalist who accepts This document was made in part using voice recognition software. While efforts are made to proofread this document, sound alike and grammatical errors may occur. Departure - Departure Disposition: ED Place in Observation Clinical Impression: Pleural effusion Acute exacerbation of CHF (congestive heart failure) Qualifiers: Heart failure type: unspecified Qualified Code(s): I50.9 - Heart failure, unspecified Pulmonary edema Qualifiers: Chronicity: acute Qualified Code(s): J81.0 - Acute pulmonary edema Condition: Stable Discharge Date/Time: 05/13/18 18:36
[2018-05-13 16:32] LABS: BASOPHILS # (AUTO) 0.1 10^3/uL (0.0-0.1); BASOPHILS % (AUTO) 0.7 %; EOSINOPHILS # (AUTO) 0.2 10^3/uL (0.0-0.7); EOSINOPHILS % (AUTO) 2.8 %; HGB - HEMOGLOBIN 12.3 g/dL (14.0-18.0); LYMPHOCYTES # (AUTO) 0.8 10^3/uL (1.5-3.5); LYMPHOCYTES % (AUTO) 10.7 %; MEAN CORPUSCULAR HEMOGLOBIN 34.4 pg (27.0-31.0); MEAN CORPUSCULAR VOLUME 104.4 fL (80.0-94.0); MEAN PLATELET VOLUME 8.4 fL (7.4-11.4); MONOCYTES # (AUTO) 0.8 10^3/uL (0.0-1.0); MONOCYTES % (AUTO) 10.5 %; NEUTROPHILS # (AUTO) 5.9 10^3/uL (1.5-6.6); NEUTROPHILS % (AUTO) 75.3 %; PLT - PLATELET COUNT 254 10^3/uL (130-450); RED BLOOD COUNT 3.58 10^6/uL (4.70-6.10); RED CELL DISTRIBUTION WIDTH 17.8 % (12.0-15.0); WHITE BLOOD COUNT 7.9 x10^3/uL (4.8-10.8)
[2018-05-13 16:46] LABS: ALBUMIN 3.6 g/dL (3.2-5.5); ALBUMIN/GLOBULIN RATIO 0.9 (1.0-2.2); BILIRUBIN,TOTAL 1.9 mg/dL (0.2-1.0); CALCIUM 9.8 mg/dL (8.5-10.3); TOTAL PROTEIN 7.5 g/dL (6.7-8.2)
--- NOTE | 2018-05-13 16:56 | XRAY Report ---
Reason: dyspnea Procedure Date: 05/13/2018 Accession Number: [id number] / [id number] Procedure: XR - Chest 1 View X-Ray CPT Code: 99520 FULL RESULT: EXAM: CHEST RADIOGRAPHY EXAM DATE: 05/13/2018 04:38 PM. CLINICAL HISTORY: Dyspnea. COMPARISON: RIBS W/PA CHEST RT 06/22/2016 5:08 PM ABDOMEN/PELVIS W/ 01/16/2018 2:07 PM. TECHNIQUE: 1 view. FINDINGS: Lungs/Pleura: There is a developing density in the inferior right chest with hypoaeration of the right lung. Mediastinum: Heart size within normal limits. There is mild to moderate aortic atherosclerotic calcification. There are moderate bilateral perihilar interstitial densities. Other: None. IMPRESSION: 1. Probable moderate sized right pleural effusion with right basilar atelectasis versus pneumonia. 2. Perihilar interstitial edema versus airways inflammatory disease. [facility]
[2018-05-13] MEDS ORDERED: FUROSEMIDE 40 MG/4 ML VIAL IVP STA (17:10)
[2018-05-13] MEDS ORDERED: SODIUM CHLORIDE FLUSH 0.9% 10 ML SYRINGE IVP PRN (18:06)
[2018-05-13] MEDS ORDERED: ACETAMINOPHEN 325 MG TABLET PO PRN (18:06)
[2018-05-13] MEDS ORDERED: ONDANSETRON ODT 4 MG TABLET TL PRN (20:17)
[2018-05-13] MEDS ORDERED: TEMAZEPAM 15 MG CAPSULE PO PRN (20:17)
--- NOTE | 2018-05-13 20:28 | HISTORY & PHYSICAL EXAMINATION ---
Chief Complaint - Chief Complaint Chief Complaint: sob History of Present Illness - Admitted From Admitted From:: ER - History Obtained From Records Reviewed: ER Records History obtained from: Patient and Spouse Exam Limitations: None - History of Present Illness HPI Comment/Other: Patient is an 82-year old male with a history of Atrial fibrillation, prostate cancer, hyperlipidemia, coronary artery disease status post myocardial infarction in the , who presents with a gradually progressive worsening shortness of breath climaxing in the last 48-72 hour Pt denies any chest pain, fever, recent flulike illness or other known precipitating factors for the shortness of breath. He describes this as a worsening dyspnea on exertion. He also notes that with his prostate cancer, having had about 9-10 months of chemotherapy, he has noticed bilateral leg swelling gradually progressing since then. He denies any known history of congestive heart failure and has never been evaluated for this. He was brought to the emergency room by his , who assists in providing history. In the emergency room a chest x-ray was performed that does show evidence of moderate pleural effusion.Lab work was remarkable for an elevated BNP of approximately 1200, with otherwise no evidence of elevated white blood cell count, significant electrolyte abnormalities, renal failure, or elevated troponin. History - Past Medical History Cardiovascular: reports: High cholesterol, Coronary artery disease, [place], Atrial fibrillation Respiratory: reports: Pneumonia Neuro: reports: Other ( reports progressively developing memory loss without known diagnosis of dementia) Endocrine/Autoimmune: reports: None GI: reports: None (Prostate cancer) : reports: Other HEENT: reports: Other Psych: reports: None Musculoskeletal: reports: None, Osteoarthritis Derm: reports: None MRSA Hx?: No - Past Surgical History General: reports: Appendectomy Ortho: reports: Arthroscopic surgery HEENT: reports: Other - Family & Social History Family History: Mother: , Father: Living arrangement: At home Living Situation: With spouse/s.o. - Substance History Use: Uses substance without health or social issues: NONE Tobacco Details: Other (Previous [id number] history of smoking quit 20 years ago) - POLST Patient has POLST: No POLST Status: Full Code Meds/Allgy - Home Medications Home Medications: Ambulatory Orders Medication Instructions Recorded Confirmed Simvastatin [Zocor] 20 mg PO DAILY 06/22/16 04/14/18 Acetaminophen [Tylenol Extra 500 mg PO Q8HR PRN 07/13/16 04/14/18 Strength] Loratadine [Claritin] 1 tab PO DAILY PRN 07/13/16 04/14/18 Multivitamin [Multiple Vitamins] 1 each PO DAILY 07/13/16 04/14/18 Apixaban [Eliquis] 5 mg PO BID 08/03/16 04/14/18 Calcium Carbonate/Vitamin D3 1 tab PO DAILY 08/03/16 04/14/18 [Calcium 500-Vit D3 600 Tablet] Furosemide 40 mg PO DAILY 09/21/16 04/14/18 Ferrous Sulfate 1 tab PO DAILY 09/25/17 04/14/18 Leuprolide [Lupron] 30 mg INJ 09/25/17 04/14/18 Potassium Bicarbonate/Cit AC 10 meq PO DAILY 11/25/17 04/14/18 [Potassium 25 Meq Tablet Eff] Vit A/Vit C/Vit E/Zinc/Copper 1 cap PO DAILY 11/25/17 04/14/18 [Preservision Areds Softgel] Enzalutamide [Xtandi] 160 mg PO DAILY 04/14/18 04/14/18 - Allergies Allergies/Adverse Reactions: Allergies Allergy/AdvReac Type Severity Reaction Status Date / Time Penicillins Allergy Rash Verified 05/13/18 16:10 Review of Systems - Constitutional Constitutional: denies: Fatigue, Chills - Cardiovascular Cariovascular: reports: Irregular heart rate, Edema, Exertional dyspnea, Decr. exercise tolerance, Orthopnea. denies: Palpitations, Chest pain, Syncope - Respiratory Respiratory: denies: Cough, Wheezing - Gastrointestinal Gastrointestinal: denies: Abdominal pain - Genitourinary Genitourinary: denies: Dysuria, Incontinence - Musculoskeletal Musculoskeletal: reports: Muscle aches - Integumentary Integumentary: reports: Dryness. denies: Rash - Neurological Neurological: denies: General weakness Exam - Vital Signs Reviewed Vital Signs: Yes Vital Signs: Vital Signs x48h Temp Pulse Pulse Resp BP BP Pulse Ox 05/13/18 19:07 36.5 C 62 22 116/83 H 100 05/13/18 18:00 107 H 24 116/95 H 94 05/13/18 17:55 105 H 21 127/68 87 L 05/13/18 17:33 86 L 05/13/18 17:00 83 23 126/89 H 93 05/13/18 16:44 78 20 117/77 97 05/13/18 16:06 36.0 C L 77 18 139/91 H 92 Vital Signs 05/13/18 05/13/18 05/13/18 16:06 16:44 17:00 Temperature 36.0 C L Heart Rate 77 78 83 Heart Rate [ Brachial] Respiratory 18 20 23 Rate Blood Pressure 139/91 H 117/77 126/89 H Blood Pressure [Right Brachial artery] O2 Saturation 92 97 93 05/13/18 05/13/18 05/13/18 17:33 17:55 18:00 Temperature Heart Rate 105 H 107 H Heart Rate [ Brachial] Respiratory 21 24 Rate Blood Pressure 127/68 116/95 H Blood Pressure [Right Brachial artery] O2 Saturation 86 L 87 L 94 05/13/18 19:07 Temperature 36.5 C Heart Rate Heart Rate [ 62 Brachial] Respiratory 22 Rate Blood Pressure Blood Pressure 116/83 H [Right Brachial artery] O2 Saturation 100 - Physical Exam General Appearance: positive: No acute distress, Alert ENT: positive: Dry mucous membranes Respiratory: positive: Breath sounds nml. negative: Chest non-tender, No respiratory distress, Wheezes, Rales, Rhonchi Cardiovascular: positive: No murmur, No gallop, Irregularly irregular, Tachycardia. negative: Systolic murmur, Diastolic murmur, Gallop/S4, Friction rub Peripheral Pulses: positive: 1+ Abdomen: positive: Non-tender, No organomegaly, Nml bowel sounds, No distention Skin: positive: Dry, Other (Venous stasis changes of the bilateral lower extre mities) Extremities: positive: Pedal edema Neurologic/Psychiatric: positive: Oriented x3, CN's nml (2-12), Motor nml, Sensation nml Conclusion/Plan - Problem List (1) Shortness of breath Conclusion/Plan: Shortness of breath is highly suspicious for an acute exacerbation of previously undiagnosed congestive heart failure. This is further more likely due to his history of chemotherapy, worsening dyspnea on exertion, elevated BNP, and bilateral pedal edema. Patient will be initiated on oral diuresis with Lasix 40 mg twice daily. An ultrasound-guided thoracentesis was ordered for tomorrow morning. An echocardiogram was also ordered for tomorrow morning when the technicians have returned to the facility. In the meantime continue to monitor and provide oxygen support with nasal cannula as needed. (2) Pleural effusion Conclusion/Plan: Most likely secondary to CHF exacerbation, as above continue oral diuresis with Lasix 40 mg twice daily and possible thoracentesis tomorrow if necessary based on ultrasound evaluation.Echocardiogram is also pending. (3) Atrial fibrillation Conclusion/Plan: Chronic A. fib, currently tachycardic, likely secondary to exertional shortness of breath, will continue to monitor vital signs and initiate Coreg at low dose. Will evaluate with echocardiogram tomorrow. Continue home Eliquis for anticoagulation and stroke risk reduction. Qualifiers: Atrial fibrillation type: chronic (4) Prostate cancer Conclusion/Plan: Continue home medications. - Lab Results Fish Bones: 05/13/18 16:28 05/13/18 16:28 - Diagnostic Imaging Results Diagnostic Imaging Results: positive: Final report reviewed, Read independently - EKG Results EKG Interpreted Independently: Yes EKG Comparison: No prior EKG Core Measures - Anticipated LOS I expect patient to be DC'd or transferred within 96 hours.: Yes - Issues Hospital Issues and Management Plan: Likely to DC in less than 24 hours from observation status. - DVT/VTE - Prophylaxis VTE/DVT Device ordered at admit?: No Not Ordered - Medical Reason: Contraindicated (Patient is already taking Eliquis.)
[2018-05-13] MEDS: APIXABAN 5 MG TABLET PO SCH (20:32)
[2018-05-13] MEDS: FAMOTIDINE 20 MG TABLET PO SCH (20:49)
[2018-05-13] MEDS: SODIUM CHLORIDE FLUSH 0.9% 10 ML SYRINGE IVP PRN (20:49)
[2018-05-13] MEDS: CARVEDILOL 3.125 MG TABLET PO SCH (20:50)
[2018-05-14] MEDS ORDERED: SODIUM CHLORIDE FLUSH 0.9% 10 ML SYRINGE IVP SCH (01:00)
[2018-05-14] MEDS: SODIUM CHLORIDE FLUSH 0.9% 10 ML SYRINGE IVP SCH ×4 (03:31→23:42)
[2018-05-14 05:00] LABS: BASOPHILS # (AUTO) 0.1 10^3/uL (0.0-0.1); BASOPHILS % (AUTO) 0.8 %; EOSINOPHILS # (AUTO) 0.3 10^3/uL (0.0-0.7); EOSINOPHILS % (AUTO) 2.9 %; HGB - HEMOGLOBIN 12.1 g/dL (14.0-18.0); LYMPHOCYTES # (AUTO) 0.7 10^3/uL (1.5-3.5); LYMPHOCYTES % (AUTO) 7.8 %; MEAN CORPUSCULAR HEMOGLOBIN 34.1 pg (27.0-31.0); MEAN CORPUSCULAR HGB CONC 32.2 g/dL (32.0-36.0); MEAN CORPUSCULAR VOLUME 105.9 fL (80.0-94.0); MEAN PLATELET VOLUME 8.6 fL (7.4-11.4); MONOCYTES # (AUTO) 0.8 10^3/uL (0.0-1.0); MONOCYTES % (AUTO) 9.2 %; NEUTROPHILS # (AUTO) 7.1 10^3/uL (1.5-6.6); NEUTROPHILS % (AUTO) 79.3 %; PLT - PLATELET COUNT 233 10^3/uL (130-450); RED BLOOD COUNT 3.55 10^6/uL (4.70-6.10); WHITE BLOOD COUNT 8.9 x10^3/uL (4.8-10.8)
[2018-05-14 05:18] LABS: ALBUMIN 3.2 g/dL (3.2-5.5); ALBUMIN/GLOBULIN RATIO 0.9 (1.0-2.2); CALCIUM 9.2 mg/dL (8.5-10.3); TOTAL PROTEIN 6.8 g/dL (6.7-8.2)
[2018-05-14] MEDS ORDERED: FUROSEMIDE 40 MG TABLET PO SCH (06:00)
[2018-05-14] MEDS: PANTOPRAZOLE 40 MG TABLET PO SCH (06:48)
[2018-05-14] MEDS: POLYETHYLENE GLYCOL 3350 17 GM PACKET PO SCH (08:44)
[2018-05-14] MEDS: LORATADINE 10 MG TABLET PO SCH (08:45)
[2018-05-14] MEDS: FERROUS SULFATE 325 MG TABLET PO SCH (08:45)
[2018-05-14] MEDS: FAMOTIDINE 20 MG TABLET PO SCH ×2 (08:45→20:30)
[2018-05-14] MEDS: CARVEDILOL 3.125 MG TABLET PO SCH ×3 (08:45→20:30)
[2018-05-14] MEDS: MULTIVITAMIN TABLET PO SCH (08:45)
[2018-05-14] MEDS ORDERED: VITAMIN D3 PO SCH (09:00)
[2018-05-14] MEDS ORDERED: POLYETHYLENE GLYCOL 3350 17 GM PACKET PO SCH (09:00)
[2018-05-14] MEDS ORDERED: CALCIUM CARBONATE PO SCH (09:00)
--- NOTE | 2018-05-14 09:16 | PROVIDER PROGRESS NOTE ---
Assessment/Plan - Problem List (1) Acute exacerbation of CHF (congestive heart failure) Qualifiers: Heart failure type: unspecified Qualified Code(s): I50.9 - Heart failure, unspecified Assessment/Plan: CXR showed pulmonary edema plus a pleural effusion. BNP has increased since yesterday. Echo being done today for evaluating LV and RV systolic function. Continue diuresis and plan diagnostic and therapeutic thoracentesis as well. (2) Systolic heart failure Qualifiers: Heart failure chronicity: acute Qualified Code(s): I50.21 - Acute systolic (congestive) heart failure Assessment/Plan: Echo shows LVEF of 25-30%. Etiologies may be: tachycardia-induced cardiomyopathy, global ischemia from CAD, chemo-induced cardiomyopathy, or alcoholic cardiomyopathy. We have ruled out an acute HI as etiology. The patient is compliant with his meds, drinks 2 glasses of wine per week, but denies daily alcohol use. He did notice the SOB starting when he was put on his new prostate cancer treatment about 2 mos ago. Will titrate up the Coreg, start Spironolactone and CARLOS, continue diuresis and fluid restriction. Monitor daily weight. Weight has not changed since admission and BNP has increased, therefore will change po Lasix to iv Lasix. Pt is incontinent of urine, therefore will cancel order for I's and O's q shift, and follow daily weights. Due to need for medication titration, Pt will not be stable for DCh after 24 hours, therefore will change OBSERVATION status to inpatient status. (3) Pulmonary HTN Assessment/Plan: Moderate-severe pulmonary HTN is newly diagnosed by Echo done today, with PA pressure 71 mmHg. Etiology is most likely from LV systolic failure, but also may be from pulmonary disease from old smoking history. He was never told he had COPD however. Will continue diuresis and will consider adding Cardizem (for Afib rate control) which would also benefit the pulm HTN. (4) Chronic a-fib Assessment/Plan: HR was elevated at admission and the pt was on no HR-control meds. Coreg will be totrated up today. Will consider Cardizem use as well for rate control. Patient already on Eliquis for anticoagulation, which will be continued while here. Monitor HR on telemetry. (5) Pleural effusion Assessment/Plan: I suspect his CHF has been worsening for >72 hours to have this much accumulation of pleural fluid. This was discussed with patient and at his bedside. Planning for ultrasound guided thoracentesis. Labs will be sent off the fluid. The Eliquis will need to be held for 1 or 2 doses, and the thoracentesis scheduled, possibly for this afternoon or tomorrow am. (6) Prostate CA Assessment/Plan: Continue home meds. (7) History of coronary artery disease Assessment/Plan: The patient should have been on a baby ASA daily and B-estefani post-HI. He was on a statin, which will be continued while here. He states that his ASA was stopped when his Eliquis was started about 2 years ago. He has ruled out for an HI as the cause of this CHF exacerbation. He will need outpatient management after DCh, for F/U on new meds and possibly a new stress test, depending on his wishes and his cancer prognosis. - Current Meds Current Meds: Current Medications Generic Name Dose Route Start Last Admin Trade Name Freq PRN Reason Stop Dose Admin Apixaban 5 mg 05/13/18 21:00 05/13/18 20:32 Eliquis PO 5 mg BID KARY Administration Famotidine 20 mg 05/13/18 21:00 05/14/18 08:45 Pepcid PO 20 mg BID KARY Administration Ferrous Sulfate 325 mg 05/14/18 08:00 05/14/18 08:45 Feosol PO 325 mg DAILYWM KARY Administration Loratadine 10 mg 05/14/18 09:00 05/14/18 08:45 Claritin PO 10 mg DAILY KARY Administration Multivitamins 1 tab 05/14/18 08:00 05/14/18 08:45 Theragran PO 1 tab DAILYWM KARY Administration Pantoprazole Sodium 40 mg 05/14/18 07:00 05/14/18 06:48 Protonix PO 40 mg QDAC KARY Administration Polyethylene Glycol 17 gm 05/14/18 09:00 05/14/18 08:44 Miralax PO 17 gm DAILY KARY Administration Sodium Chloride 10 ml 05/13/18 20:17 05/13/18 20:49 Normal Saline Flush 0.9% IVP 10 ml PRN PRN Administration NEEDED PER PROVIDER ORDERS Sodium Chloride 10 ml 05/14/18 01:00 05/14/18 08:45 Normal Saline Flush 0.9% IVP 10 ml [id number] [facility] Administration - Lab Result Fish Bone Diagrams: 05/14/18 04:15 05/14/18 04:15 - EKG Results EKG Interpreted Independently: Yes EKG Comparison: Unchanged from prior EKG EKG Findings: Afib, PVC, rightward axis, anterior Q waves, diffuse T wave flattening, low voltage in limb leads. - Additional Planning My Orders: My Active Orders 05/13/18 18:10 IV Insert [RC] .ONCE 05/13/18 18:11 Evaluate and Treat OT [OT] Routine 05/13/18 18:25 CELL COUNT, BF [BF] Routine CUL,BODY FLUID(AEROBIC) [RM] Routine 05/13/18 21:00 Apixaban [Eliquis] 5 mg PO BID 05/13/18 Dinner Low Sodium Diet [DIET] 05/14/18 07:00 Pantoprazole [Protonix] 40 mg PO QDAC 05/14/18 08:00 Ferrous Sulfate [Feosol] 325 mg PO DAILYWM Multivitamin [Theragran] 1 tab PO DAILYWM 05/14/18 09:00 Carvedilol [Coreg] 6.25 mg PO BID Loratadine [Claritin] 10 mg PO DAILY 05/14/18 09:11 Transfer [Admit \ Transfer \ Status] [RC] .ONCE 05/14/18 09:14 EKG - Electrocardiogram [RC] .ONCE 05/14/18 10:00 Spironolactone [Aldactone] 25 mg PO DAILY 05/14/18 11:00 Thoracentesis Puncture [US] Routine Miscellaneous Laboratory Order [LAB] ONCE 05/14/18 12:00 Calcium Carb (Oyster Shell) [Oysco-500] 500 mg PO QDLUNCH Cholecalciferol [Vitamin D3] 400 unit PO QDLUNCH 05/14/18 14:00 FUROSEMIDE INJ 40mg VIAL [LASIX INJ 40 mg VIAL] 40 mg IVP BIDDIURETIC 05/14/18 18:19 Echo Transthoracic Complete [ECHO] Routine 05/14/18 21:00 Atorvastatin [Lipitor] 10 mg PO QPM 05/15/18 05:00 BNP - B-NATRIURETIC PEPTIDE [IAI] DAILYLAB CBC - COMP BLD CT W/AUTO DIFF [HEME] DAILYLAB CMP [COMPREHENSIVE METABOLIC PANEL] [CHEM] DAILYLAB 05/15/18 09:00 Patient Own Med [Patient Own Medication] 4 each PO DAILY 05/16/18 05:00 BNP - B-NATRIURETIC PEPTIDE [IAI] DAILYLAB Subjective - Subjective Patient Reports: Shortness of Breath Nursing Reports: Other (Pt is incontinent of urine, therefore cannot get accurate I's and O's) Objective Vital Signs: Vital Signs - 24 hr 05/13/18 05/13/18 05/13/18 16:06 16:44 17:00 Temperature 36.0 C L Heart Rate 77 78 83 Heart Rate [ Brachial] Respiratory 18 20 23 Rate Blood Pressure 139/91 H 117/77 126/89 H Blood Pressure [Right Brachial artery] O2 Saturation 92 97 93 05/13/18 05/13/18 05/13/18 17:33 17:55 18:00 Temperature Heart Rate 105 H 107 H Heart Rate [ Brachial] Respiratory 21 24 Rate Blood Pressure 127/68 116/95 H Blood Pressure [Right Brachial artery] O2 Saturation 86 L 87 L 94 05/13/18 05/13/18 05/13/18 19:07 20:47 22:35 Temperature 36.5 C Heart Rate Heart Rate [ 62 81 78 Brachial] Respiratory 22 24 Rate Blood Pressure Blood Pressure 116/83 H 134/97 H [Right Brachial artery] O2 Saturation 100 94 05/13/18 05/14/18 05/14/18 23:58 04:50 07:18 Temperature 36.3 C L 36.2 C L 36.4 C L Heart Rate Heart Rate [ 74 81 82 Brachial] Respiratory 20 22 17 Rate Blood Pressure Blood Pressure 94/58 L 134/90 H 124/74 [Right Brachial artery] O2 Saturation 92 93 94 Oxygen O2 Source Nasal cannula I&O (Last 24 Hrs): Intake and Output Totals x24h 05/12/18 05/13/18 05/14/18 23:59 23:59 23:59 Intake Total 240 Output Total 1 Balance 239 General: Alert, Oriented x3 HEENT: Mucous membr. moist/pink, Other (Ecchymosis of R cheek (from a fall at home 1 week ago)) Neck: Supple, Other ((+) JVD at 30 degree angle) Neuro: Non Focal Cardiovascular: No murmurs, Other (distant heart sounds) Respiratory: Other (L base crackles, R diminished breath sounds) Extremities: Other (1+ edema to mid [place], skin of shins is dry and michael) - Results Results: Laboratory Results WBC 8.9 x10^3/uL (4.8-10.8) 05/14/18 04:15 RBC 3.55 10^6/uL (4.70-6.10) L 05/14/18 04:15 Hgb 12.1 g/dL (14.0-18.0) L 05/14/18 04:15 Hct 37.6 % (42.0-52.0) L 05/14/18 04:15 MCV 105.9 fL (80.0-94.0) H 05/14/18 04:15 MCH 34.1 pg (27.0-31.0) H 05/14/18 04:15 MCHC 32.2 g/dL (32.0-36.0) 05/14/18 04:15 RDW 18.0 % (12.0-15.0) H 05/14/18 04:15 Plt Count 233 10^3/uL (130-450) 05/14/18 04:15 MPV 8.6 fL (7.4-11.4) 05/14/18 04:15 Neut # (Auto) 7.1 10^3/uL (1.5-6.6) H 05/14/18 04:15 Lymph # (Auto) 0.7 10^3/uL (1.5-3.5) L 05/14/18 04:15 [place] # (Auto) 0.8 10^3/uL (0.0-1.0) 05/14/18 04:15 Eos # (Auto) 0.3 10^3/uL (0.0-0.7) 05/14/18 04:15 Baso # (Auto) 0.1 10^3/uL (0.0-0.1) 05/14/18 04:15 Absolute Nucleated RBC 0.02 x10^3/uL 05/14/18 04:15 Nucleated RBC % 0.2 /100WBC 05/14/18 04:15 Sodium 135 mmol/L (135-145) 05/14/18 04:15 Potassium 4.0 mmol/L (3.5-5.0) 05/14/18 04:15 Chloride 96 mmol/L (101-111) L 05/14/18 04:15 Carbon Dioxide 29 mmol/L (21-32) 05/14/18 04:15 Anion Gap 10.0 (6-13) 05/14/18 04:15 BUN 42 mg/dL (6-20) H 05/14/18 04:15 Creatinine 1.0 mg/dL (0.6-1.2) 05/14/18 04:15 Estimated GFR (MDRD) 71 (>89) L 05/14/18 04:15 Glucose 117 mg/dL (70-100) H 05/14/18 04:15 Calcium 9.2 mg/dL (8.5-10.3) 05/14/18 04:15 Magnesium 1.9 mg/dL (1.7-2.8) 05/14/18 04:15 Iron 38 ug/dL (45-182) L 05/14/18 04:15 TIBC 370 ug/dL (250-450) 05/14/18 04:15 % Saturation 10 % (20-50) L 05/14/18 04:15 Transferrin 264 mg/dL (180-329) 05/14/18 04:15 Total Bilirubin 2.0 mg/dL (0.2-1.0) H 05/14/18 04:15 AST 46 IU/L (10-42) H 05/14/18 04:15 ALT 26 IU/L (10-60) 05/14/18 04:15 Alkaline Phosphatase 94 IU/L (42-121) 05/14/18 04:15 Troponin I 0.05 ng/mL (<0.49) 05/14/18 04:15 B-Natriuretic Peptide 1480 pg/mL (5-100) H 05/14/18 04:15 Total Protein 6.8 g/dL (6.7-8.2) 05/14/18 04:15 Albumin 3.2 g/dL (3.2-5.5) 05/14/18 04:15 Globulin 3.6 g/dL (2.1-4.2) 05/14/18 04:15 Albumin/Globulin Ratio 0.9 (1.0-2.2) L 05/14/18 04:15 Lipase 15 U/L (22-51) L 05/13/18 16:28 TSH 4.08 uIU/mL (0.34-5.60) 05/14/18 04:15 ABX Reporting Has patient been on IV antibiotics over the past 48 hours?: No
[2018-05-14] MEDS ORDERED: CARVEDILOL 3.125 MG TABLET PO SCH (10:33)
[2018-05-14] MEDS: APIXABAN 5 MG TABLET PO SCH (10:57)
--- NOTE | 2018-05-14 11:29 | ADVANCE CARE PLANNING NOTE ---
Advance Care Planning - Date/Time Date: 05/14/18 Time: 11:00 - Purpose of encounter Text: To determine patient's wishes regarding Code status and how aggressively to treat his medical conditions - Parties in attendance Parties in attendance: I spoke to he patient, who was in his bed, and was at bedside - Decisional capacity Decisional capacity of: The patient has full decisional capacity. He was alert and oriented x3. He had some responses that were slow, but accurate. - Subjective/Patient's story Subjective/Patient's story: The patient lives in [place] with his . There has been a slow but minimal decline in his cognition and function over the past year. Since starting a new chemo agent for his prostate CA 2 mos ago, he has become weaker and more SOB, and uses a walker in the house. One week ago he tripped over a rug and hit his R cheek on a fireplace grate. There was no syncope. Over the past 2-3 days he is short of breath even walking to the bathroom and has developed orthopnea. His therefore brought him into the ER yesterday. - Objective/Medical story Objective/Medical Story: The patient had a remote [place] in the , but hasn't seen a manufacturing production manager in > 5 yeas. Two years ago his prostate CA was diagnosed and he was followed by an oncologist at [facility]. At a vist there, he was Dx with new onset afib 2 years ago, admitted to [facility] and had "lots of tests" and was discharged on Eliquis and was taken off the daily aspirin. He did not have to be followed by a manufacturing production manager. His oncologist 2 mos ago and he started to come to [facility] here, where the Xtandi was started. He has been more weak and SOB over the past 2 mos. In the past 2-3 days he developed leg edema and orthopnea. The ER visit yesterday prompted this admission for pulmonary edema and Afib with borderline adequate rate control. He has ruled out for an [place], Echo shows a new cardiomyopathy and moderate-severe pulmonary HTN. He has had adjustment of meds for rate control, and for treatment of new LV systolic failure. - Goals of Care Goals of care determinations: The patient wishes to return to his functional status when he was at his best, which was before 2 mos ago. He wants aggressive medical care, including chemothe rapy, a feeding tube if needed, iv treatment and Full Code status. The showed me the original copy of the patient's Advanced Directive which state all that. He has never filled out a POLST. - Plan Plan: Continue Full Code status. A copy of the Advanced Directives was copied and will be scanned into his permanent record. - Code Status Code Status: Attempt Resuscitation - Time Spent on Advance Care Planning Time spent on advance care plannin min
[2018-05-14 11:30] LABS: INR 2.1 (0.8-1.2); PT - PROTHROMBIN TIME 22.9 secs (9.9-12.6)
[2018-05-14] MEDS: CHOLECALCIFEROL 400 UNIT TABLET PO SCH (11:34)
[2018-05-14] MEDS: CALCIUM CARB (OYSTER SHELL) 500 MG TABLET PO SCH (11:34)
[2018-05-14] MEDS: ENZALUTAMIDE 40 MG PO SCH (11:35)
[2018-05-14] MEDS: SPIRONOLACTONE 25 MG TABLET PO SCH (11:35)
[2018-05-14] MEDS: FUROSEMIDE 40 MG/4 ML VIAL IVP SCH (14:55)
[2018-05-14] MEDS: ATORVASTATIN 10 MG TABLET PO SCH (20:29)
[2018-05-14] MEDS ORDERED: ATORVASTATIN 10 MG TABLET PO SCH (21:00)
[2018-05-15 05:24] LABS: BASOPHILS % (AUTO) 0.5 %; EOSINOPHILS # (AUTO) 0.3 10^3/uL (0.0-0.7); EOSINOPHILS % (AUTO) 3.8 %; HGB - HEMOGLOBIN 12.3 g/dL (14.0-18.0); LYMPHOCYTES # (AUTO) 0.6 10^3/uL (1.5-3.5); LYMPHOCYTES % (AUTO) 6.9 %; MEAN CORPUSCULAR HEMOGLOBIN 35.4 pg (27.0-31.0); MEAN CORPUSCULAR HGB CONC 33.8 g/dL (32.0-36.0); MEAN CORPUSCULAR VOLUME 104.8 fL (80.0-94.0); MEAN PLATELET VOLUME 8.4 fL (7.4-11.4); MONOCYTES # (AUTO) 0.7 10^3/uL (0.0-1.0); MONOCYTES % (AUTO) 8.7 %; NEUTROPHILS # (AUTO) 6.8 10^3/uL (1.5-6.6); NEUTROPHILS % (AUTO) 80.1 %; PLT - PLATELET COUNT 219 10^3/uL (130-450); RED BLOOD COUNT 3.48 10^6/uL (4.70-6.10); RED CELL DISTRIBUTION WIDTH 17.3 % (12.0-15.0); WHITE BLOOD COUNT 8.5 x10^3/uL (4.8-10.8)
[2018-05-15 05:27] LABS: INR 1.7 (0.8-1.2); PT - PROTHROMBIN TIME 18.7 secs (9.9-12.6)
[2018-05-15 05:35] LABS: ALBUMIN 3.4 g/dL (3.2-5.5); ALBUMIN/GLOBULIN RATIO 0.9 (1.0-2.2); BILIRUBIN,TOTAL 1.5 mg/dL (0.2-1.0); CALCIUM 9.3 mg/dL (8.5-10.3); CREATININE 1.1 mg/dL (0.6-1.2); TOTAL PROTEIN 7.1 g/dL (6.7-8.2)
[2018-05-15] MEDS: SODIUM CHLORIDE FLUSH 0.9% 10 ML SYRINGE IVP PRN (07:08)
[2018-05-15] MEDS: FUROSEMIDE 40 MG/4 ML VIAL IVP SCH (07:08)
[2018-05-15] MEDS: FAMOTIDINE 20 MG TABLET PO SCH (08:03)
[2018-05-15] MEDS: SPIRONOLACTONE 25 MG TABLET PO SCH (08:03)
[2018-05-15] MEDS: FERROUS SULFATE 325 MG TABLET PO SCH (08:03)
[2018-05-15] MEDS: CARVEDILOL 3.125 MG TABLET PO SCH ×2 (08:03→21:25)
[2018-05-15] MEDS: PANTOPRAZOLE 40 MG TABLET PO SCH (08:03)
[2018-05-15] MEDS: MULTIVITAMIN TABLET PO SCH (08:03)
[2018-05-15] MEDS: LORATADINE 10 MG TABLET PO SCH (08:03)
[2018-05-15] MEDS: POLYETHYLENE GLYCOL 3350 17 GM PACKET PO SCH (08:04)
[2018-05-15] MEDS: SODIUM CHLORIDE FLUSH 0.9% 10 ML SYRINGE IVP SCH ×2 (08:04→21:33)
[2018-05-15] MEDS: ENZALUTAMIDE 40 MG PO SCH (08:05)
[2018-05-15] MEDS ORDERED: NON FORMULARY MED (Enzalutamide [Xtandi] 160 MG) PO SCH (09:00)
[2018-05-15] MEDS: CHOLECALCIFEROL 400 UNIT TABLET PO SCH (11:46)
[2018-05-15] MEDS: CALCIUM CARB (OYSTER SHELL) 500 MG TABLET PO SCH (11:46)
--- NOTE | 2018-05-15 13:13 | PROVIDER PROGRESS NOTE ---
Assessment/Plan - Problem List (1) Confusion and disorientation Assessment/Plan: The patient did not receive any sleeping med or narcotic. I spoke to the , and she described that he can have "good and bad days, where he thinks that she is his daughter". He has no focal neuro signs to consider a TIA or CVA. Will stop any sedatives and narcotics, will order B12, folate and vit D levels to assess for reversible causes of confusion. I suspect this is his baseline intermittent confusion from dementia exacerbated by fatigue and being in an unrecognizable location (consistent with ). (2) Systolic heart failure Qualifiers: Heart failure chronicity: acute Qualified Code(s): I50.21 - Acute systolic (congestive) heart failure Assessment/Plan: Pt tolerating new B-estefani and Spironolactone. Will add CARLOS at hs, to stagger his meds that drop BP. He is still getting bid Lasix, will transition to po dose. Weights appear to be inaccurate, since he is diuresisng, BNP is dropping and he has a fluid restriction ordered, therefore I doubt he has gained 3 kg since admission. I will address weights with charge nurse, Anne. Pt to have thoracentesis today. (3) Pleural effusion Assessment/Plan: Pt to have thoracentesis today. Labs are ordered to check fluid for pH, glu and protein. (4) Chronic a-fib Assessment/Plan: Rate is controlled on current meds. No additional Cardizem will be added. Eliquis has been stopped for the past 2 doses, in preparation for thoracentesis. This will be resumed when all punctures are done. (5) History of coronary artery disease Assessment/Plan: Given his fluctuating confusion, he does not appear to be a candidate for a cor angio and therefore no stress testing planned as an inpatient. He will need a [employer] to follow him again after [facility]. (6) Prostate CA Assessment/Plan: Pt on home meds - Current Meds Current Meds: Current Medications Generic Name Dose Route Start Last Admin Trade Name Freq PRN Reason Stop Dose Admin Atorvastatin Calcium 10 mg 05/14/18 21:00 05/14/18 20:29 Lipitor PO 10 mg QPM KARY Administration Calcium Carbonate/Glycine 500 mg 05/14/18 12:00 05/15/18 11:46 Oysco-500 PO 500 mg QDLUNCH KARY Administration Carvedilol 6.25 mg 05/14/18 09:00 05/15/18 08:03 Coreg PO 6.25 mg BID KARY Administration Cholecalciferol 400 unit 05/14/18 12:00 05/15/18 11:46 Vitamin D3 PO 400 unit QDLUNCH KARY Administration Famotidine 20 mg 05/13/18 21:00 05/15/18 08:03 Pepcid PO 20 mg BID KARY Administration Ferrous Sulfate 325 mg 05/14/18 08:00 05/15/18 08:03 Feosol PO 325 mg DAILYWM KARY Administration Furosemide 40 mg 05/14/18 14:00 05/15/18 07:08 Lasix Inj 40 Mg Vial IVP 40 mg BIDDIURETIC KARY Administration Loratadine 10 mg 05/14/18 09:00 05/15/18 08:03 Claritin PO 10 mg DAILY KARY Administration Multivitamins 1 tab 05/14/18 08:00 05/15/18 08:03 Theragran PO 1 tab DAILYWM KARY Administration Pantoprazole Sodium 40 mg 05/14/18 07:00 05/15/18 08:03 Protonix PO 40 mg QDAC KARY Administration (Enzalutamide [ 4 each 05/14/18 11:30 05/15/18 08:05 Xtandi] 40 Mg) PO 4 each Capsules DAILY KARY Administration Polyethylene Glycol 17 gm 05/14/18 09:00 05/15/18 08:04 Miralax PO 17 gm DAILY KARY Administration Sodium Chloride 10 ml 05/13/18 20:17 05/15/18 07:08 Normal Saline Flush 0.9% IVP 10 ml PRN PRN Administration NEEDED PER PROVIDER ORDERS Sodium Chloride 10 ml 05/14/18 01:00 05/15/18 08:04 Normal Saline Flush 0.9% IVP 10 ml 0100,0900,1700 KARY Administration Spironolactone 25 mg 05/14/18 10:00 05/15/18 08:03 Aldactone PO 25 mg DAILY KARY Administration - Lab Result Fish Bone Diagrams: 05/15/18 04:45 05/15/18 04:45 - Additional Planning My Orders: My Active Orders 05/14/18 14:00 FUROSEMIDE INJ 40mg VIAL [LASIX INJ 40 mg VIAL] 40 mg IVP BIDDIURETIC 05/14/18 18:19 Echo Transthoracic Complete [ECHO] Routine 05/14/18 21:00 Atorvastatin [Lipitor] 10 mg PO QPM 05/15/18 05:00 FOLATE [IAI] Routine VITAMIN B12 [IAI] Routine VITAMIN D,D2,D3 PANEL [REFLAB] Routine 05/15/18 11:00 Thoracentesis Puncture [US] Routine 05/16/18 05:00 BNP - B-NATRIURETIC PEPTIDE [IAI] DAILYLAB MAGNESIUM [CHEM] DAILYLAB PT WITH INR [COAG] DAILYLAB Subjective - Subjective Patient Reports: Other ("Who let you into my house?") Nursing Reports: Confused, Sedated (Very lethargic, hard to awaken) Objective Vital Signs: Vital Signs - 24 hr 05/14/18 05/14/18 05/15/18 15:54 20:22 00:05 Temperature 36.0 C L 36.4 C L 36.6 C Heart Rate [ 72 76 71 Brachial] Respiratory 16 20 20 Rate Blood Pressure 105/80 124/75 103/65 [Right Brachial artery] O2 Saturation 99 99 92 05/15/18 05/15/18 05/15/18 04:17 07:33 11:20 Temperature 36.4 C L 36.0 C L 36.2 C L Heart Rate [ 68 79 Brachial] Respiratory 22 16 18 Rate Blood Pressure 105/67 106/64 114/66 [Right Brachial artery] O2 Saturation 99 98 98 Oxygen O2 Source [With Activity] Nasal cannula O2 Source Nasal cannula I&O (Last 24 Hrs): Intake and Output Totals x24h 05/13/18 05/14/18 05/15/18 23:59 23:59 23:59 Intake Total 240 340 390 Output Total 1 Balance 239 340 390 General: Other (Lethargic, awakens and answers then flls asleep) HEENT: Mucous membr. moist/pink Neck: Supple, No JVD Neuro: Disoriented, Non Focal Cardiovascular: No murmurs Respiratory: Other (L side diminished, R clear) Abdomen: Soft Extremities: Other (Trace pedal and pre-tibial edema) - Results Results: Laboratory Results WBC 8.5 x10^3/uL (4.8-10.8) 05/15/18 04:45 RBC 3.48 10^6/uL (4.70-6.10) L 05/15/18 04:45 Hgb 12.3 g/dL (14.0-18.0) L 05/15/18 04:45 Hct 36.5 % (42.0-52.0) L 05/15/18 04:45 MCV 104.8 fL (80.0-94.0) H 05/15/18 04:45 MCH 35.4 pg (27.0-31.0) H 05/15/18 04:45 MCHC 33.8 g/dL (32.0-36.0) 05/15/18 04:45 RDW 17.3 % (12.0-15.0) H 05/15/18 04:45 Plt Count 219 10^3/uL (130-450) 05/15/18 04:45 MPV 8.4 fL (7.4-11.4) 05/15/18 04:45 Neut # (Auto) 6.8 10^3/uL (1.5-6.6) H 05/15/18 04:45 Lymph # (Auto) 0.6 10^3/uL (1.5-3.5) L 05/15/18 04:45 [place] # (Auto) 0.7 10^3/uL (0.0-1.0) 05/15/18 04:45 Eos # (Auto) 0.3 10^3/uL (0.0-0.7) 05/15/18 04:45 Baso # (Auto) 0.0 10^3/uL (0.0-0.1) 05/15/18 04:45 Absolute Nucleated RBC 0.02 x10^3/uL 05/15/18 04:45 Nucleated RBC % 0.3 /100WBC 05/15/18 04:45 PT 18.7 secs (9.9-12.6) H 05/15/18 04:45 INR 1.7 (0.8-1.2) H 05/15/18 04:45 APTT 41.3 secs (24.9-33.3) H 05/14/18 11:09 Sodium 135 mmol/L (135-145) 05/15/18 04:45 Potassium 4.0 mmol/L (3.5-5.0) 05/15/18 04:45 Chloride 94 mmol/L (101-111) L 05/15/18 04:45 Carbon Dioxide 31 mmol/L (21-32) 05/15/18 04:45 Anion Gap 10.0 (6-13) 05/15/18 04:45 BUN 47 mg/dL (6-20) H 05/15/18 04:45 Creatinine 1.1 mg/dL (0.6-1.2) 05/15/18 04:45 Estimated GFR (MDRD) 64 (>89) L 05/15/18 04:45 Glucose 114 mg/dL (70-100) H 05/15/18 04:45 Calcium 9.3 mg/dL (8.5-10.3) 05/15/18 04:45 Magnesium 2.0 mg/dL (1.7-2.8) 05/15/18 04:45 Iron 38 ug/dL (45-182) L 05/14/18 04:15 TIBC 370 ug/dL (250-450) 05/14/18 04:15 % Saturation 10 % (20-50) L 05/14/18 04:15 Transferrin 264 mg/dL (180-329) 05/14/18 04:15 Total Bilirubin 1.5 mg/dL (0.2-1.0) H 05/15/18 04:45 AST 42 IU/L (10-42) 05/15/18 04:45 ALT 26 IU/L (10-60) 05/15/18 04:45 Alkaline Phosphatase 100 IU/L (42-121) 05/15/18 04:45 Troponin I 0.05 ng/mL (<0.49) 05/14/18 04:15 B-Natriuretic Peptide 1367 pg/mL (5-100) H 05/15/18 04:45 Total Protein 7.1 g/dL (6.7-8.2) 05/15/18 04:45 Albumin 3.4 g/dL (3.2-5.5) 05/15/18 04:45 Globulin 3.7 g/dL (2.1-4.2) 05/15/18 04:45 Albumin/Globulin Ratio 0.9 (1.0-2.2) L 05/15/18 04:45 Lipase 15 U/L (22-51) L 05/13/18 16:28 TSH 4.08 uIU/mL (0.34-5.60) 05/14/18 04:15 ABX Reporting Has patient been on IV antibiotics over the past 48 hours?: No
--- NOTE | 2018-05-15 14:35 | Ultrasound Report ---
Reason: Pleural effusion Procedure Date: 05/15/2018 Accession Number: [id number] / [id number] Procedure: US - Thoracentesis Puncture CPT Code: FULL RESULT: EXAM: ULTRASOUND-GUIDED THORACENTESIS EXAM DATE: 05/15/2018 01:19 PM. CLINICAL HISTORY: Pleural effusion. COMPARISON: None. TECHNIQUE: Risks, benefits and alternatives to the procedure were discussed with the patient and his . All questions answered. Written and verbal consent obtained. Patient was placed in the sitting position and the skin overlying the effusion marked with sonographic guidance. The skin was sterilely prepped and draped, and 1% buffered lidocaine was used for local anesthesia. An 17-gauge Yueh was advanced into the pleural space and fluid aspirated. Upon completion, the catheter was removed. FINDINGS: A total of 1000 mL of fluid was removed without immediate complication. Patient tolerated procedure well. A sample was sent to pathology for analysis. IMPRESSION: Ultrasound-guided thoracentesis without immediate complications. RADIA
[2018-05-15] MEDS ORDERED: BUFFERED LIDOCAINE 10 ML SYRINGE IU ONE (14:41)
--- NOTE | 2018-05-15 14:56 | XRAY Report ---
Reason: POST THORACENTISIS Procedure Date: 05/15/2018 Accession Number: [id number] / [id number] Procedure: XR - Chest 1 View X-Ray CPT Code: 96725 FULL RESULT: EXAM: CHEST RADIOGRAPHY EXAM DATE: 05/15/2018 02:37 PM. CLINICAL HISTORY: Post-thoracentesis. COMPARISON: Chest 1 view 05/13/2018 4:27 PM. TECHNIQUE: 1 view. FINDINGS: Lungs/Pleura: Pulmonary edema is essentially unchanged compared to prior with interval decrease in pleural effusion on the right consistent with thoracentesis. No sizable pneumothorax is detected. Mediastinum: Within exam limitations, the cardiomediastinal contour is normal. Other: None. IMPRESSION: No pneumothorax. RADIA
--- NOTE | 2018-05-15 17:14 | XRAY Report ---
Reason: POST THORACENTISIS Procedure Date: 05/15/2018 Accession Number: [id number] / [id number] Procedure: XR - Chest 1 View X-Ray CPT Code: 33896 FULL RESULT: EXAM: CHEST RADIOGRAPHY EXAM DATE: 05/15/2018 04:14 PM. CLINICAL HISTORY: POST THORACENTISIS. COMPARISON: Chest radiograph dated 05/15/2018. TECHNIQUE: 1 view. FINDINGS: Lungs/Pleura: Irregular opacities throughout both lungs are similar to the prior examination with no new focal consolidation. Small bilateral pleural effusions are redemonstrated and similar. No pneumothorax. Mediastinum: Within exam limitations, the cardiomediastinal contour is normal. Other: None. IMPRESSION: 1. No pneumothorax. 2. Remainder similar. RADIA
[2018-05-15 17:39] LABS: CC,BF RBC 360 /mm^3; LYMPHOCYTES %,BODY FLUID 35; MONOCYTES %,BODY FLUID 16 %
[2018-05-15 17:40] LABS: BF COLOR YELLOW; BF SOURCE PLEURAL; EOSINOPHILS %,BODY FLUID 1 %; MACROPHAGES %,BODY FLUID 18 %; MESOTHELIAL %, BF 1 %
[2018-05-15] MEDS ORDERED: LISINOPRIL 5 MG TABLET PO SCH ×2 (21:00)
[2018-05-15] MEDS: ATORVASTATIN 10 MG TABLET PO SCH (21:33)
[2018-05-16] MEDS: SODIUM CHLORIDE FLUSH 0.9% 10 ML SYRINGE IVP SCH ×3 (01:08→19:10)
[2018-05-16 05:39] LABS: INR 1.5 (0.8-1.2); PT - PROTHROMBIN TIME 17.1 secs (9.9-12.6)
[2018-05-16] MEDS ORDERED: FUROSEMIDE 40 MG TABLET PO SCH (09:00)
[2018-05-16] MEDS: ENZALUTAMIDE 40 MG PO SCH (09:53)
[2018-05-16] MEDS: POLYETHYLENE GLYCOL 3350 17 GM PACKET PO SCH (09:53)
[2018-05-16] MEDS: SPIRONOLACTONE 25 MG TABLET PO SCH (10:03)
[2018-05-16] MEDS: CARVEDILOL 3.125 MG TABLET PO SCH ×2 (10:04→20:22)
[2018-05-16] MEDS: APIXABAN 5 MG TABLET PO SCH ×2 (10:07→20:22)
[2018-05-16] MEDS: FERROUS SULFATE 325 MG TABLET PO SCH (10:08)
[2018-05-16] MEDS: MULTIVITAMIN TABLET PO SCH (10:09)
[2018-05-16] MEDS: LORATADINE 10 MG TABLET PO SCH (10:09)
--- NOTE | 2018-05-16 10:13 | XRAY Report ---
Reason: F/U thoracentesis, CHF Procedure Date: 05/16/2018 Accession Number: [id number] / [id number] Procedure: XR - Chest 1 View X-Ray CPT Code: 57261 FULL RESULT: EXAM: CHEST RADIOGRAPHY EXAM DATE: 05/16/2018 09:15 AM. CLINICAL HISTORY: Follow up thoracentesis, CHF. COMPARISON: CHEST 1 VIEW 05/15/2018 4:00 PM. TECHNIQUE: 1 view. FINDINGS: Lungs/Pleura: There are stable bilateral gradient opacities consistent with small to moderate effusion greater on the right than on the left. There is associated basilar and perihilar atelectasis. No extraventilatory air. Mediastinum: Within exam limitations, the cardiomediastinal contour is normal. Other: Stable degenerative changes of the spine and right shoulder. IMPRESSION: Stable small to moderate bilateral pleural effusion greater on the right with associated adjacent atelectasis. No appreciable pneumothorax. RADIA
--- NOTE | 2018-05-16 13:57 | PROVIDER PROGRESS NOTE ---
Assessment/Plan - Problem List (1) Hypotension Qualifiers: Hypotension type: hypotension due to drug Qualified Code(s): I95.2 - Hypotension due to drugs Assessment/Plan: BP has been low since he was diuresed and his cardiac meds were started. Since he is not orthostatic (this was checked by PT), will decrease all his med doses slightly. Monitor BP and symptoms every shift. (2) Confusion and disorientation Assessment/Plan: He is better w.r.t person, place and time, but was present when he awoke. He is still very slow to answer questions today. Monitor symptoms q shift. Adjusting his med doses to improve cerebral perfusion, may also help his cognition. PT worked with him for 50 min. It took him 20 min to walk from bed to TV (approx 10 feet). Plan is for PT rehab at a SNF after [facility]. Posss D[facility] tomorrow, if VSS. (3) Systolic heart failure Qualifiers: Heart failure chronicity: acute Qualified Code(s): I50.21 - Acute systolic (congestive) heart failure Assessment/Plan: Continue B-estefani and CARLOS and Spironolactone but decrease doses, stop Lasix (4) Pleural effusion Assessment/Plan: There was minimal reaccumulation, per am CXR. Fluid analysis does not show infection. Other labs still pending. (5) Chronic a-fib Assessment/Plan: Continue anticoagulant and meds for rate control (6) History of coronary artery disease Assessment/Plan: Stable (7) Prostate CA Assessment/Plan: Stable - Current Meds Current Meds: Current Medications Generic Name Dose Route Start Last Admin Trade Name Mauricio PRN Reason Stop Dose Admin Apixaban 5 mg 05/16/18 09:00 05/16/18 10:07 Eliquis PO 5 mg BID KARY Administration Atorvastatin Calcium 10 mg 05/14/18 21:00 05/15/18 21:33 Lipitor PO 10 mg QPM KARY Administration Calcium Carbonate/Glycine 500 mg 05/14/18 12:00 05/15/18 11:46 Oysco-500 PO 500 mg QDLUNCH KARY Administration Carvedilol 6.25 mg 05/14/18 09:00 05/16/18 10:04 Coreg PO 6.25 mg BID KARY Administration Cholecalciferol 400 unit 05/14/18 12:00 05/15/18 11:46 Vitamin D3 PO 400 unit QDLUNCH KARY Administration Ferrous Sulfate 325 mg 05/14/18 08:00 05/16/18 10:08 Feosol PO 325 mg DAILYWM KARY Administration Furosemide 40 mg 05/16/18 09:00 05/16/18 10:04 Lasix PO 40 mg DAILY KARY Administration Lisinopril 2.5 mg 05/15/18 21:00 05/15/18 21:25 Zestril PO Not Given QPM KARY Loratadine 10 mg 05/14/18 09:00 05/16/18 10:09 Claritin PO 10 mg DAILY KARY Administration Multivitamins 1 tab 05/14/18 08:00 05/16/18 10:09 Theragran PO 1 tab DAILYWM KARY Administration (Enzalutamide [ 4 each 05/14/18 11:30 05/16/18 09:53 Xtandi] 40 Mg) PO 4 each Capsules DAILY KARY Administration Polyethylene Glycol 17 gm 05/14/18 09:00 05/16/18 09:53 Miralax PO 17 gm DAILY KARY Administration Sodium Chloride 10 ml 05/13/18 20:17 05/15/18 07:08 Normal Saline Flush 0.9% IVP 10 ml PRN PRN Administration NEEDED PER PROVIDER ORDERS Sodium Chloride 10 ml 05/14/18 01:00 05/16/18 10:13 Normal Saline Flush 0.9% IVP 10 ml 0100,0900,1700 KARY Administration Spironolactone 12.5 mg 05/16/18 09:00 05/16/18 10:03 Aldactone PO 12.5 mg DAILY KARY Administration - Lab Result Fish Bone Diagrams: 05/15/18 04:45 05/15/18 04:45 - Additional Planning My Orders: My Active Orders 05/15/18 13:58 BRAYAN Hose and SCDs [RC] QSHIFT 05/15/18 14:00 CUL,BODY FLUID(AEROBIC) [RM] Routine MISC TEST QUEST REFRIG [REFLAB] Routine MISC TEST QUEST REFRIG [REFLAB] Routine MISC TEST QUEST REFRIG [REFLAB] Routine 05/15/18 14:39 Miscellaneous Laboratory Order [LAB] ONCE 05/15/18 21:00 Lisinopril [Zestril] 2.5 mg PO QPM 05/16/18 09:00 Apixaban [Eliquis] 5 mg PO BID Furosemide [Lasix] 40 mg PO DAILY Spironolactone [Aldactone] 12.5 mg PO DAILY 05/17/18 09:00 Chest 1 View X-Ray [XR] DAILY Subjective - Subjective Patient Reports: Feeling Better Nursing Reports: Other (Pt is not as somnolent as yesteray but is "tired", is sleepy, but not as confused) Objective Vital Signs: Vital Signs - 24 hr 05/15/18 05/15/18 05/15/18 17:00 21:00 21:24 Temperature 35.8 C L 36.3 C L Heart Rate [ 82 69 71 Brachial] Respiratory 16 20 Rate Blood Pressure 96/60 101/58 L [Left Brachial artery] Blood Pressure 98/62 [Right Brachial artery] O2 Saturation 100 93 92 05/16/18 05/16/18 05/16/18 00:46 04:36 08:05 Temperature 36.4 C L 36.2 C L 36.2 C L Heart Rate [ 72 56 L 75 Brachial] Respiratory 16 20 20 Rate Blood Pressure 91/58 L 107/66 [Left Brachial artery] Blood Pressure 105/62 [Right Brachial artery] O2 Saturation 99 97 93 05/16/18 13:00 Temperature 36.3 C L Heart Rate [ 71 Brachial] Respiratory 18 Rate Blood Pressure 97/69 [Left Brachial artery] Blood Pressure [Right Brachial artery] O2 Saturation 99 Oxygen O2 Source [With Activity] Nasal cannula O2 Source Nasal cannula I&O (Last 24 Hrs): Intake and Output Totals x24h 05/14/18 05/15/18 05/16/18 23:59 23:59 23:59 Intake Total 340 640 590 Balance 340 640 590 General: Other (Sleepy but answers appropriately when awakened) HEENT: Mucous membr. moist/pink Neck: No JVD Neuro: Non Focal, Other (Lethargic) Cardiovascular: No murmurs Respiratory: No respiratory distress, Breath sounds nml Abdomen: Soft Extremities: No edema - Results Results: Laboratory Results WBC 8.5 x10^3/uL (4.8-10.8) 05/15/18 04:45 RBC 3.48 10^6/uL (4.70-6.10) L 05/15/18 04:45 Hgb 12.3 g/dL (14.0-18.0) L 05/15/18 04:45 Hct 36.5 % (42.0-52.0) L 05/15/18 04:45 MCV 104.8 fL (80.0-94.0) H 05/15/18 04:45 MCH 35.4 pg (27.0-31.0) H 05/15/18 04:45 MCHC 33.8 g/dL (32.0-36.0) 05/15/18 04:45 RDW 17.3 % (12.0-15.0) H 05/15/18 04:45 Plt Count 219 10^3/uL (130-450) 05/15/18 04:45 MPV 8.4 fL (7.4-11.4) 05/15/18 04:45 Neut # (Auto) 6.8 10^3/uL (1.5-6.6) H 05/15/18 04:45 Lymph # (Auto) 0.6 10^3/uL (1.5-3.5) L 05/15/18 04:45 [place] # (Auto) 0.7 10^3/uL (0.0-1.0) 05/15/18 04:45 Eos # (Auto) 0.3 10^3/uL (0.0-0.7) 05/15/18 04:45 Baso # (Auto) 0.0 10^3/uL (0.0-0.1) 05/15/18 04:45 Absolute Nucleated RBC 0.02 x10^3/uL 05/15/18 04:45 Nucleated RBC % 0.3 /100WBC 05/15/18 04:45 PT 17.1 secs (9.9-12.6) H 05/16/18 04:55 INR 1.5 (0.8-1.2) H 05/16/18 04:55 APTT 41.3 secs (24.9-33.3) H 05/14/18 11:09 Sodium 135 mmol/L (135-145) 05/15/18 04:45 Potassium 4.0 mmol/L (3.5-5.0) 05/15/18 04:45 Chloride 94 mmol/L (101-111) L 05/15/18 04:45 Carbon Dioxide 31 mmol/L (21-32) 05/15/18 04:45 Anion Gap 10.0 (6-13) 05/15/18 04:45 BUN 47 mg/dL (6-20) H 05/15/18 04:45 Creatinine 1.1 mg/dL (0.6-1.2) 05/15/18 04:45 Estimated GFR (MDRD) 64 (>89) L 05/15/18 04:45 Glucose 114 mg/dL (70-100) H 05/15/18 04:45 Calcium 9.3 mg/dL (8.5-10.3) 05/15/18 04:45 Magnesium 2.0 mg/dL (1.7-2.8) 05/16/18 04:55 Iron 38 ug/dL (45-182) L 05/14/18 04:15 TIBC 370 ug/dL (250-450) 05/14/18 04:15 % Saturation 10 % (20-50) L 05/14/18 04:15 Transferrin 264 mg/dL (180-329) 05/14/18 04:15 Total Bilirubin 1.5 mg/dL (0.2-1.0) H 05/15/18 04:45 AST 42 IU/L (10-42) 05/15/18 04:45 ALT 26 IU/L (10-60) 05/15/18 04:45 Alkaline Phosphatase 100 IU/L (42-121) 05/15/18 04:45 Troponin I 0.05 ng/mL (<0.49) 05/14/18 04:15 B-Natriuretic Peptide 1146 pg/mL (5-100) H 05/16/18 04:55 Total Protein 7.1 g/dL (6.7-8.2) 05/15/18 04:45 Albumin 3.4 g/dL (3.2-5.5) 05/15/18 04:45 Globulin 3.7 g/dL (2.1-4.2) 05/15/18 04:45 Albumin/Globulin Ratio 0.9 (1.0-2.2) L 05/15/18 04:45 Lipase 15 U/L (22-51) L 05/13/18 16:28 Vitamin B12 2237 pg/mL (180-914) H 05/15/18 04:45 Folate 32.00 ng/mL (5.90 - >24.8) 05/15/18 04:45 TSH 4.08 uIU/mL (0.34-5.60) 05/14/18 04:15 Fluid Source PLEURAL 05/15/18 14:00 Fluid Color YELLOW 05/15/18 14:00 Fluid Clarity CLEAR 05/15/18 14:00 Fluid WBC 136 /mm^3 05/15/18 14:00 Fluid RBC 360 /mm^3 05/15/18 14:00 Fluid Neutrophils % 29 % 05/15/18 14:00 Fluid Lymphocytes % 35 05/15/18 14:00 Fluid Monocytes % 16 % 05/15/18 14:00 Fluid Eosinophils % 1 % 05/15/18 14:00 Fluid Macrophages % 18 % 05/15/18 14:00 Fld Mesothelial Cell % 1 % 05/15/18 14:00 ABX Reporting Has patient been on IV antibiotics over the past 48 hours?: No
[2018-05-16] MEDS: CHOLECALCIFEROL 400 UNIT TABLET PO SCH (15:08)
[2018-05-16] MEDS: CALCIUM CARB (OYSTER SHELL) 500 MG TABLET PO SCH (15:08)
[2018-05-16] MEDS: LISINOPRIL 5 MG TABLET PO SCH (20:22)
[2018-05-16] MEDS: ATORVASTATIN 10 MG TABLET PO SCH (20:22)
[2018-05-17] MEDS: SODIUM CHLORIDE FLUSH 0.9% 10 ML SYRINGE IVP SCH ×3 (05:39→17:11)
[2018-05-17] MEDS ORDERED: BISACODYL 10 MG SUPP PR ONE (06:13)
[2018-05-17] MEDS: SENNA 8.6 MG TABLET PO SCH (08:17)
[2018-05-17] MEDS: MULTIVITAMIN TABLET PO SCH (08:17)
[2018-05-17] MEDS: FERROUS SULFATE 325 MG TABLET PO SCH (08:17)
[2018-05-17] MEDS: LORATADINE 10 MG TABLET PO SCH (08:17)
[2018-05-17] MEDS: APIXABAN 5 MG TABLET PO SCH ×2 (08:17→23:07)
[2018-05-17] MEDS: DOCUSATE SODIUM 250 MG CAPSULE PO SCH (08:17)
[2018-05-17] MEDS: CARVEDILOL 3.125 MG TABLET PO SCH ×2 (08:17→23:08)
[2018-05-17] MEDS: SPIRONOLACTONE 25 MG TABLET PO SCH (08:17)
[2018-05-17] MEDS: POLYETHYLENE GLYCOL 3350 17 GM PACKET PO SCH (08:18)
[2018-05-17] MEDS: ENZALUTAMIDE 40 MG PO SCH (08:18)
[2018-05-17] MEDS ORDERED: APIXABAN 5 MG TABLET PO SCH (10:00)
--- NOTE | 2018-05-17 10:55 | XRAY Report ---
Reason: F/U thoracentesis, CHF Procedure Date: 05/17/2018 Accession Number: [id number] / [id number] Procedure: XR - Chest 1 View X-Ray CPT Code: 07657 FULL RESULT: EXAM: CHEST RADIOGRAPHY EXAM DATE: 05/17/2018 08:56 AM. CLINICAL HISTORY: Followup thoracentesis, CHF. COMPARISON: Chest 1 view 05/16/2018 9:02 AM. TECHNIQUE: 1 view. FINDINGS: Lungs/Pleura: Lungs remain hypoinflated. There is bilateral gradient opacity consistent with effusion, small on the left, moderate size on the right slightly increased from comparison exam yesterday. No extra ventilatory air. Stable appearance of mild background interstitial pulmonary edema. Mediastinum: Stable mild cardiomegaly even accounting for technique. Mediastinal and hilar contours are stable. Other: None. IMPRESSION: Bilateral effusion as described with slight reaccumulation on the right. Mild background edema pattern persists. RADIA
[2018-05-17] MEDS ORDERED: SODIUM CHLORIDE 0.9% 500 ML IV ONE (12:01)
[2018-05-17] MEDS: CHOLECALCIFEROL 400 UNIT TABLET PO SCH (12:35)
[2018-05-17] MEDS: CALCIUM CARB (OYSTER SHELL) 500 MG TABLET PO SCH (12:35)
--- NOTE | 2018-05-17 13:56 | PROVIDER PROGRESS NOTE ---
Assessment/Plan - Problem List (1) Hypotension Qualifiers: Hypotension type: hypotension due to drug Qualified Code(s): I95.2 - Hypotension due to drugs Assessment/Plan: Orthostasis noted today. Will give a 500 cc saline bolus. Monitor VS q2h. Will stop Spironolactone. Will start compression stockings. No Dch today. (2) Confusion and disorientation Assessment/Plan: It appears that he is worse when his BP is low. Will adjust meds and plan as in #1 (3) Systolic heart failure Qualifiers: Heart failure chronicity: acute Qualified Code(s): I50.21 - Acute systolic (congestive) heart failure Assessment/Plan: No further SOB. Pt able to lie flat to sleep. (4) Pleural effusion Assessment/Plan: There is slow reaccumulation of fluid and mild CHF reported by CXR, but clinically not overloaded. Awaiting all lab W/U of the pleural fluid. (5) Chronic a-fib Assessment/Plan: HR was slow yesterday and there were 2.3-2.9 sec pauses. Coreg dose was decreased. HR is better toay. Eliquis has been resumed as of yesterday. Dose checked, and is correct for his serum creat. (6) History of coronary artery disease Assessment/Plan: Stable (7) Prostate CA Assessment/Plan: Stable - Current Meds Current Meds: Current Medications Generic Name Dose Route Start Last Admin Trade Name Freq PRN Reason Stop Dose Admin Apixaban 5 mg 05/16/18 09:00 05/17/18 08:17 Eliquis PO 5 mg BID KARY Administration Atorvastatin Calcium 10 mg 05/14/18 21:00 05/16/18 20:22 Lipitor PO 10 mg QPM KARY Administration Calcium Carbonate/Glycine 500 mg 05/14/18 12:00 05/17/18 12:35 Oysco-500 PO 500 mg QDLUNCH KARY Administration Carvedilol 3.125 mg 05/16/18 21:00 05/17/18 08:17 Coreg PO 3.125 mg BID KARY Administration Cholecalciferol 400 unit 05/14/18 12:00 05/17/18 12:35 Vitamin D3 PO 400 unit QDLUNCH KARY Administration Docusate Sodium 250 - 500 mg 05/17/18 09:00 11/10/18 08:17 Colace 250mg Capsule PO 250 mg DAILY KARY Administration Ferrous Sulfate 325 mg 05/14/18 08:00 05/17/18 08:17 Feosol PO 325 mg DAILYWM KARY Administration Lisinopril 1.25 mg 05/16/18 21:00 05/16/18 20:22 Zestril PO 1.25 mg QPM KARY Administration Loratadine 10 mg 05/14/18 09:00 05/17/18 08:17 Claritin PO 10 mg DAILY KARY Administration Multivitamins 1 tab 05/14/18 08:00 05/17/18 08:17 Theragran PO 1 tab DAILYWM KARY Administration (Enzalutamide [ 4 each 05/14/18 11:30 05/17/18 08:18 Xtandi] 40 Mg) PO 4 each Capsules DAILY KARY Administration Polyethylene Glycol 17 gm 05/14/18 09:00 05/17/18 08:18 Miralax PO Not Given DAILY KARY Senna 8.6 - 17.2 mg 05/17/18 09:00 05/17/18 08:17 Senokot PO 8.6 mg DAILY KARY Administration Sodium Chloride 10 ml 05/13/18 20:17 05/15/18 07:08 Normal Saline Flush 0.9% IVP 10 ml PRN PRN Administration NEEDED PER PROVIDER ORDERS Sodium Chloride 10 ml 05/14/18 01:00 05/17/18 08:19 Normal Saline Flush 0.9% IVP 10 ml 0100,0900,1700 KARY Administration - Lab Result Fish Bone Diagrams: 05/15/18 04:45 05/15/18 04:45 - Additional Planning My Orders: My Active Orders 05/16/18 21:00 Carvedilol [Coreg] 3.125 mg PO BID Lisinopril [Zestril] 1.25 mg PO QPM 05/17/18 09:00 Docusate Sodium 250Mg Capsule [Colace 250Mg Capsule] 250 - 500 mg PO DAILY Senna [Senokot] 8.6 - 17.2 mg PO DAILY 05/18/18 05:00 BMP - BASIC METABOLIC PANEL [CHEM] DAILYLAB BNP - B-NATRIURETIC PEPTIDE [IAI] DAILYLAB CBC - COMP BLD CT W/AUTO DIFF [HEME] DAILYLAB MAGNESIUM [CHEM] DAILYLAB Subjective - Subjective Patient Reports: Feeling Better, Other (After sitting up and feeding himself breakfast, he became lethargic sitting upright in the chair) Nursing Reports: Other (BP was 80's/19 in chair and improved when placed supine) Objective Vital Signs: Vital Signs - 24 hr 05/16/18 05/16/18 05/16/18 15:56 18:49 20:08 Temperature 36.4 C L 36.6 C Heart Rate [ 73 73 77 Brachial] Respiratory 18 18 Rate Blood Pressure 117/70 101/70 101/64 [Left Brachial artery] Blood Pressure [Right Brachial artery] O2 Saturation 98 99 05/16/18 05/17/18 05/17/18 22:56 00:37 04:50 Temperature 36.3 C L 36.3 C L 35.6 C L Heart Rate [ 75 85 82 Brachial] Respiratory 24 20 20 Rate Blood Pressure 104/61 [Left Brachial artery] Blood Pressure 95/69 126/73 [Right Brachial artery] O2 Saturation 97 98 98 05/17/18 05/17/18 05/17/18 08:14 10:18 10:31 Temperature Heart Rate [ 78 81 78 Brachial] Respiratory 14 16 Rate Blood Pressure [Left Brachial artery] Blood Pressure 103/64 84/47 L 103/60 [Right Brachial artery] O2 Saturation 100 99 95 Oxygen O2 Source [With Activity] Nasal cannula O2 Source Nasal cannula I&O (Last 24 Hrs): Intake and Output Totals x24h 05/15/18 05/16/18 05/17/18 23:59 23:59 23:59 Intake Total 640 1080 1180 Balance 640 1080 1180 General: Other (Somnolent) HEENT: Mucous membr. moist/pink Neck: Supple, No JVD Neuro: Non Focal, Other (Obtunded) Cardiovascular: Regular rate, No murmurs Respiratory: No respiratory distress, Breath sounds nml Abdomen: Soft Extremities: No edema - Results Results: Laboratory Results WBC 8.5 x10^3/uL (4.8-10.8) 05/15/18 04:45 RBC 3.48 10^6/uL (4.70-6.10) L 05/15/18 04:45 Hgb 12.3 g/dL (14.0-18.0) L 05/15/18 04:45 Hct 36.5 % (42.0-52.0) L 05/15/18 04:45 MCV 104.8 fL (80.0-94.0) H 05/15/18 04:45 MCH 35.4 pg (27.0-31.0) H 05/15/18 04:45 MCHC 33.8 g/dL (32.0-36.0) 05/15/18 04:45 RDW 17.3 % (12.0-15.0) H 05/15/18 04:45 Plt Count 219 10^3/uL (130-450) 05/15/18 04:45 MPV 8.4 fL (7.4-11.4) 05/15/18 04:45 Neut # (Auto) 6.8 10^3/uL (1.5-6.6) H 05/15/18 04:45 Lymph # (Auto) 0.6 10^3/uL (1.5-3.5) L 05/15/18 04:45 [place] # (Auto) 0.7 10^3/uL (0.0-1.0) 05/15/18 04:45 Eos # (Auto) 0.3 10^3/uL (0.0-0.7) 05/15/18 04:45 Baso # (Auto) 0.0 10^3/uL (0.0-0.1) 05/15/18 04:45 Absolute Nucleated RBC 0.02 x10^3/uL 05/15/18 04:45 Nucleated RBC % 0.3 /100WBC 05/15/18 04:45 PT 17.1 secs (9.9-12.6) H 05/16/18 04:55 INR 1.5 (0.8-1.2) H 05/16/18 04:55 APTT 41.3 secs (24.9-33.3) H 05/14/18 11:09 Sodium 135 mmol/L (135-145) 05/15/18 04:45 Potassium 4.0 mmol/L (3.5-5.0) 05/15/18 04:45 Chloride 94 mmol/L (101-111) L 05/15/18 04:45 Carbon Dioxide 31 mmol/L (21-32) 05/15/18 04:45 Anion Gap 10.0 (6-13) 05/15/18 04:45 BUN 47 mg/dL (6-20) H 05/15/18 04:45 Creatinine 1.1 mg/dL (0.6-1.2) 05/15/18 04:45 Estimated GFR (MDRD) 64 (>89) L 05/15/18 04:45 Glucose 114 mg/dL (70-100) H 05/15/18 04:45 Calcium 9.3 mg/dL (8.5-10.3) 05/15/18 04:45 Magnesium 2.0 mg/dL (1.7-2.8) 05/16/18 04:55 Iron 38 ug/dL (45-182) L 05/14/18 04:15 TIBC 370 ug/dL (250-450) 05/14/18 04:15 % Saturation 10 % (20-50) L 05/14/18 04:15 Transferrin 264 mg/dL (180-329) 05/14/18 04:15 Total Bilirubin 1.5 mg/dL (0.2-1.0) H 05/15/18 04:45 AST 42 IU/L (10-42) 05/15/18 04:45 ALT 26 IU/L (10-60) 05/15/18 04:45 Alkaline Phosphatase 100 IU/L (42-121) 05/15/18 04:45 Troponin I 0.05 ng/mL (<0.49) 05/14/18 04:15 B-Natriuretic Peptide 1146 pg/mL (5-100) H 05/16/18 04:55 Total Protein 7.1 g/dL (6.7-8.2) 05/15/18 04:45 Albumin 3.4 g/dL (3.2-5.5) 05/15/18 04:45 Globulin 3.7 g/dL (2.1-4.2) 05/15/18 04:45 Albumin/Globulin Ratio 0.9 (1.0-2.2) L 05/15/18 04:45 Lipase 15 U/L (22-51) L 05/13/18 16:28 Vitamin B12 2237 pg/mL (180-914) H 05/15/18 04:45 Folate 32.00 ng/mL (5.90 - >24.8) 05/15/18 04:45 TSH 4.08 uIU/mL (0.34-5.60) 05/14/18 04:15 Fluid Source PLEURAL 05/15/18 14:00 Fluid Color YELLOW 05/15/18 14:00 Fluid Clarity CLEAR 05/15/18 14:00 Fluid WBC 136 /mm^3 05/15/18 14:00 Fluid RBC 360 /mm^3 05/15/18 14:00 Fluid Neutrophils % 29 % 05/15/18 14:00 Fluid Lymphocytes % 35 05/15/18 14:00 Fluid Monocytes % 16 % 05/15/18 14:00 Fluid Eosinophils % 1 % 05/15/18 14:00 Fluid Macrophages % 18 % 05/15/18 14:00 Fld Mesothelial Cell % 1 % 05/15/18 14:00 ABX Reporting Has patient been on IV antibiotics over the past 48 hours?: No
[2018-05-17] MEDS: MIDODRINE 2.5 MG TABLET PO SCH (17:11)
[2018-05-17] MEDS: ATORVASTATIN 10 MG TABLET PO SCH (23:07)
[2018-05-17] MEDS: LISINOPRIL 5 MG TABLET PO SCH (23:09)
[2018-05-18] MEDS: ACETAMINOPHEN 325 MG TABLET PO PRN ×3 (00:12→23:51)
[2018-05-18] MEDS: SODIUM CHLORIDE FLUSH 0.9% 10 ML SYRINGE IVP SCH ×5 (00:12→23:26)
[2018-05-18 05:31] LABS: BASOPHILS % (AUTO) 0.5 %; EOSINOPHILS # (AUTO) 0.3 10^3/uL (0.0-0.7); EOSINOPHILS % (AUTO) 4.4 %; HGB - HEMOGLOBIN 11.8 g/dL (14.0-18.0); LYMPHOCYTES # (AUTO) 0.7 10^3/uL (1.5-3.5); LYMPHOCYTES % (AUTO) 9.3 %; MEAN CORPUSCULAR HEMOGLOBIN 34.6 pg (27.0-31.0); MEAN CORPUSCULAR HGB CONC 32.6 g/dL (32.0-36.0); MEAN CORPUSCULAR VOLUME 106.1 fL (80.0-94.0); MONOCYTES # (AUTO) 0.9 10^3/uL (0.0-1.0); MONOCYTES % (AUTO) 11.4 %; NEUTROPHILS # (AUTO) 5.7 10^3/uL (1.5-6.6); NEUTROPHILS % (AUTO) 74.4 %; PLT - PLATELET COUNT 241 10^3/uL (130-450); RED BLOOD COUNT 3.41 10^6/uL (4.70-6.10); RED CELL DISTRIBUTION WIDTH 17.4 % (12.0-15.0); WHITE BLOOD COUNT 7.6 x10^3/uL (4.8-10.8)
[2018-05-18 05:40] LABS: CALCIUM 9.2 mg/dL (8.5-10.3); CREATININE 0.9 mg/dL (0.6-1.2); MAGNESIUM 1.9 mg/dL (1.7-2.8)
[2018-05-18] MEDS: DOCUSATE SODIUM 250 MG CAPSULE PO SCH (08:10)
[2018-05-18] MEDS: POLYETHYLENE GLYCOL 3350 17 GM PACKET PO SCH (08:11)
[2018-05-18] MEDS: MULTIVITAMIN TABLET PO SCH (08:11)
[2018-05-18] MEDS: CARVEDILOL 3.125 MG TABLET PO SCH ×2 (08:11→21:05)
[2018-05-18] MEDS: SENNA 8.6 MG TABLET PO SCH (08:11)
[2018-05-18] MEDS: LORATADINE 10 MG TABLET PO SCH (08:11)
[2018-05-18] MEDS: APIXABAN 5 MG TABLET PO SCH ×2 (08:11→21:05)
[2018-05-18] MEDS: MIDODRINE 2.5 MG TABLET PO SCH ×3 (08:11→17:05)
[2018-05-18] MEDS: FERROUS SULFATE 325 MG TABLET PO SCH (08:11)
[2018-05-18] MEDS: ENZALUTAMIDE 40 MG PO SCH (08:11)
[2018-05-18] MEDS: CHOLECALCIFEROL 400 UNIT TABLET PO SCH (12:21)
[2018-05-18] MEDS: CALCIUM CARB (OYSTER SHELL) 500 MG TABLET PO SCH (12:21)
--- NOTE | 2018-05-18 15:19 | PROVIDER PROGRESS NOTE ---
Assessment/Plan - Problem List (1) Hypotension Qualifiers: Hypotension type: hypotension due to drug Qualified Code(s): I95.2 - Hypotension due to drugs Assessment/Plan: Midodrine will be started to help maintain BP >90 for better organ perfusion. After PT today, he was put into his recliner and fell asleep and BP dropped to <90 again. He is not stable for DCh yet today due to lethargy and hypotension. Continue Midodrine and dose may need up-titration. (2) Confusion and disorientation Assessment/Plan: The patient needed prompting to take each step forward and which foot to use, during PT today, and he only walked 10 feet. I spoke to the in private about his poor mental condition. She will reconsider the Code status, but needs to think about it. Will stop telemetry and peripheral iv with flushes tko, to allow more freedom for sleeping, and allow more restful sleep. (3) Systolic heart failure Qualifiers: Heart failure chronicity: acute Qualified Code(s): I50.21 - Acute systolic (congestive) heart failure Assessment/Plan: The patient was tested for oxygen, in planning for transfer to SNF. He did desaturate at rest and with exertion and does need O2 continuously. Continue Coreg and low dose of CARLOS, no Spironolactone due to low BP and no volume overload currently. Lasix was stopped several days ago. Monitor VS and sats daily. (4) Pleural effusion Assessment/Plan: No bacterial growth from fluid specimen. The other labs like pH and glu are sti ll pending. The XRays showed slight re-accumulation. (5) Chronic a-fib Assessment/Plan: HR control is good with fewer pauses since the Coreg dose was decreased to 3.125 bid. Eliquis has been resumed several days ago, post-thoracentesis. Telemetry will be stopped, to allow him to sleep more freely, since he was "picking at" his leads, per . (6) History of coronary artery disease Assessment/Plan: No CAD sx. (7) Prostate CA Assessment/Plan: No obstructive sx. - Current Meds Current Meds: Current Medications Generic Name Dose Route Start Last Admin Trade Name Freq PRN Reason Stop Dose Admin Acetaminophen 650 mg 05/13/18 20:17 05/18/18 00:12 Tylenol PO 650 mg Q4HR PRN Administration Pain 1 to 4 Apixaban 5 mg 05/16/18 09:00 05/18/18 08:11 Eliquis PO 5 mg BID KARY Administration Atorvastatin Calcium 10 mg 05/14/18 21:00 05/17/18 23:07 Lipitor PO 10 mg QPM KARY Administration Calcium Carbonate/Glycine 500 mg 05/14/18 12:00 05/18/18 12:21 Oysco-500 PO 500 mg QDLUNCH KARY Administration Carvedilol 3.125 mg 05/16/18 21:00 05/18/18 08:11 Coreg PO 3.125 mg BID KARY Administration Cholecalciferol 400 unit 05/14/18 12:00 05/18/18 12:21 Vitamin D3 PO 400 unit QDLUNCH KARY Administration Docusate Sodium 250 - 500 mg 05/17/18 09:00 05/18/18 08:10 Colace 250mg Capsule PO 250 mg DAILY KARY Administration Ferrous Sulfate 325 mg 05/14/18 08:00 05/18/18 08:11 Feosol PO 325 mg DAILYWM KARY Administration Lisinopril 1.25 mg 05/16/18 21:00 05/17/18 23:09 Zestril PO 1.25 mg QPM KARY Administration Loratadine 10 mg 05/14/18 09:00 05/18/18 08:11 Claritin PO 10 mg DAILY KARY Administration Midodrine 2.5 mg 05/17/18 17:00 05/18/18 12:21 PO 2.5 mg TIDWM KARY Administration Multivitamins 1 tab 05/14/18 08:00 05/18/18 08:11 Theragran PO 1 tab DAILYWM KARY Administration (Enzalutamide [ 4 each 05/14/18 11:30 05/18/18 08:11 Xtandi] 40 Mg) PO 4 each Capsules DAILY KARY Administration Polyethylene Glycol 17 gm 05/14/18 09:00 05/18/18 08:11 Miralax PO 17 gm DAILY KARY Administration Senna 8.6 - 17.2 mg 05/17/18 09:00 05/18/18 08:11 Senokot PO Not Given DAILY KARY Sodium Chloride 10 ml 05/13/18 20:17 05/15/18 07:08 Normal Saline Flush 0.9% IVP 10 ml PRN PRN Administration NEEDED PER PROVIDER ORDERS Sodium Chloride 10 ml 05/14/18 01:00 05/18/18 08:11 Normal Saline Flush 0.9% IVP 10 ml 0100,0900,1700 KARY Administration - Lab Result Fish Bone Diagrams: 05/18/18 05:16 05/18/18 05:16 - Additional Planning My Orders: My Active Orders 05/17/18 17:00 Midodrine 2.5 mg PO TIDWM 05/18/18 09:11 IV Discontinuation [RC] .ONCE Telemetry-Discontinue [RC] .ONCE 05/18/18 09:21 Oxygen Desat. Study w/Exercise [RC] .ONCE Subjective - Subjective Patient Reports: Other (His describes that he had a bad night: he called her to pick him up and take him home. She came back and spent the night in his rrom. She noticed he tossed and turned and had a restless night witth poor sleep. She thinks that is why he is so tired and napping in his chair right now.) Nursing Reports: Other (sitting up in chair to eat, then fell asleep in chair) Objective Vital Signs: Vital Signs - 24 hr 05/17/18 05/17/18 05/17/18 16:50 18:50 20:59 Temperature 36.4 C L 36.3 C L 36.4 C L Heart Rate [ 56 L 83 70 Brachial] Respiratory 17 20 20 Rate Blood Pressure 128/66 97/68 [Left Brachial artery] Blood Pressure 100/67 [Right Brachial artery] O2 Saturation 98 93 95 05/17/18 05/18/18 05/18/18 23:00 01:00 02:46 Temperature 36.3 C L 36.2 C L 35.8 C L Heart Rate [ 62 77 73 Brachial] Respiratory 20 20 18 Rate Blood Pressure 121/68 [Left Brachial artery] Blood Pressure 117/82 H 100/59 L [Right Brachial artery] O2 Saturation 96 94 96 05/18/18 05/18/18 05/18/18 05:00 07:00 07:45 Temperature 36.2 C L 36.3 C L Heart Rate [ 70 79 71 Brachial] Respiratory 18 18 Rate Blood Pressure [Left Brachial artery] Blood Pressure 108/67 116/82 H 121/79 [Right Brachial artery] O2 Saturation 100 98 11/11/18 11/11/18 11/11/18 08:05 08:26 09:00 Temperature 36.0 C L Heart Rate [ 55 L 69 61 Brachial] Respiratory 20 14 Rate Blood Pressure [Left Brachial artery] Blood Pressure 107/66 109/71 116/70 [Right Brachial artery] O2 Saturation 97 98 05/18/18 05/18/18 05/18/18 09:30 11:00 13:00 Temperature Heart Rate [ 62 59 L Brachial] Respiratory 16 16 16 Rate Blood Pressure [Left Brachial artery] Blood Pressure 103/60 112/66 [Right Brachial artery] O2 Saturation 94 93 95 05/18/18 14:52 Temperature 36.0 C L Heart Rate [ 63 Brachial] Respiratory 18 Rate Blood Pressure [Left Brachial artery] Blood Pressure 97/61 [Right Brachial artery] O2 Saturation 98 Oxygen O2 Source [With Activity] Nasal cannula O2 Source Nasal cannula I&O (Last 24 Hrs): Intake and Output Totals x24h 05/16/18 05/17/18 05/18/18 23:59 23:59 23:59 Intake Total 1080 1480 720 Balance 1080 1480 720 General: Other (Lethargic) HEENT: Mucous membr. moist/pink Neck: Supple, No JVD Neuro: Non Focal, Other (Lethargic) Cardiovascular: No murmurs Respiratory: No respiratory distress Abdomen: Soft Extremities: No edema - Results Results: Laboratory Results WBC 7.6 x10^3/uL (4.8-10.8) 05/18/18 05:16 RBC 3.41 10^6/uL (4.70-6.10) L 05/18/18 05:16 Hgb 11.8 g/dL (14.0-18.0) L 05/18/18 05:16 Hct 36.2 % (42.0-52.0) L 05/18/18 05:16 MCV 106.1 fL (80.0-94.0) H 05/18/18 05:16 MCH 34.6 pg (27.0-31.0) H 05/18/18 05:16 MCHC 32.6 g/dL (32.0-36.0) 05/18/18 05:16 RDW 17.4 % (12.0-15.0) H 05/18/18 05:16 Plt Count 241 10^3/uL (130-450) 05/18/18 05:16 MPV 8.0 fL (7.4-11.4) 05/18/18 05:16 Neut # (Auto) 5.7 10^3/uL (1.5-6.6) 05/18/18 05:16 Lymph # (Auto) 0.7 10^3/uL (1.5-3.5) L 05/18/18 05:16 [place] # (Auto) 0.9 10^3/uL (0.0-1.0) 05/18/18 05:16 Eos # (Auto) 0.3 10^3/uL (0.0-0.7) 05/18/18 05:16 Baso # (Auto) 0.0 10^3/uL (0.0-0.1) 05/18/18 05:16 Absolute Nucleated RBC 0.02 x10^3/uL 05/18/18 05:16 Nucleated RBC % 0.2 /100WBC 05/18/18 05:16 PT 17.1 secs (9.9-12.6) H 05/16/18 04:55 INR 1.5 (0.8-1.2) H 05/16/18 04:55 APTT 41.3 secs (24.9-33.3) H 05/14/18 11:09 Sodium 137 mmol/L (135-145) 05/18/18 05:16 Potassium 3.9 mmol/L (3.5-5.0) 05/18/18 05:16 Chloride 97 mmol/L (101-111) L 05/18/18 05:16 Carbon Dioxide 33 mmol/L (21-32) H 05/18/18 05:16 Anion Gap 7.0 (6-13) 05/18/18 05:16 BUN 44 mg/dL (6-20) H 05/18/18 05:16 Creatinine 0.9 mg/dL (0.6-1.2) 05/18/18 05:16 Estimated GFR (MDRD) 80 (>89) L 05/18/18 05:16 Glucose 122 mg/dL (70-100) H 05/18/18 05:16 Calcium 9.2 mg/dL (8.5-10.3) 05/18/18 05:16 Magnesium 1.9 mg/dL (1.7-2.8) 05/18/18 05:16 Iron 38 ug/dL (45-182) L 05/14/18 04:15 TIBC 370 ug/dL (250-450) 05/14/18 04:15 % Saturation 10 % (20-50) L 05/14/18 04:15 Transferrin 264 mg/dL (180-329) 05/14/18 04:15 Total Bilirubin 1.5 mg/dL (0.2-1.0) H 05/15/18 04:45 AST 42 IU/L (10-42) 05/15/18 04:45 ALT 26 IU/L (10-60) 05/15/18 04:45 Alkaline Phosphatase 100 IU/L (42-121) 05/15/18 04:45 Troponin I 0.05 ng/mL (<0.49) 05/14/18 04:15 B-Natriuretic Peptide 1570 pg/mL (5-100) H 05/18/18 05:16 Total Protein 7.1 g/dL (6.7-8.2) 05/15/18 04:45 Albumin 3.4 g/dL (3.2-5.5) 05/15/18 04:45 Globulin 3.7 g/dL (2.1-4.2) 05/15/18 04:45 Albumin/Globulin Ratio 0.9 (1.0-2.2) L 05/15/18 04:45 Lipase 15 U/L (22-51) L 05/13/18 16:28 Vitamin B12 2237 pg/mL (180-914) H 05/15/18 04:45 Folate 32.00 ng/mL (5.90 - >24.8) 05/15/18 04:45 TSH 4.08 uIU/mL (0.34-5.60) 05/14/18 04:15 Fluid Source PLEURAL 05/15/18 14:00 Fluid Color YELLOW 05/15/18 14:00 Fluid Clarity CLEAR 05/15/18 14:00 Fluid WBC 136 /mm^3 05/15/18 14:00 Fluid RBC 360 /mm^3 05/15/18 14:00 Fluid Neutrophils % 29 % 05/15/18 14:00 Fluid Lymphocytes % 35 05/15/18 14:00 Fluid Monocytes % 16 % 05/15/18 14:00 Fluid Eosinophils % 1 % 05/15/18 14:00 Fluid Macrophages % 18 % 05/15/18 14:00 Fld Mesothelial Cell % 1 % 05/15/18 14:00 Ref Lab Test Result REPORT 05/15/18 14:00
--- NOTE | 2018-05-18 15:36 | ADVANCE CARE PLANNING NOTE ---
Advance Care Planning - Date/Time Date: 05/18/18 Time: 13:30 - Purpose of encounter Text: To update his about his poor mental status and reconsider his Code status. - Parties in attendance Parties in attendance: I spoke to the in a conference room. - Decisional capacity Decisional capacity of: For the past 3 days, his level of alertness has been progressively worsening and he is more confused and lethargic. He can no longer make informed decisions. The is his closest next of kin and will be making decisions on his behalf. 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 He was diuresed and has no edema or orthopnea. His level of alertness has decreased every day. On the day of admission, I was shown his Advanced Directives and I spoke to the patient and his confirming his wishes of aggressive medical management for all conditions, feeding tube if needed and to have Full Code status. 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 He was diuresed and has no edema or orthopnea but still requires supplemental oxygen. His level of alertness has decreased every day. His BP has been as low as 90/19 and all diuretic were stopped and Coreg and Lisinopril doses are at the lowest possible. He got a saline bolus of 500 cc. Despite these measures, his alertness is worse and he sleeps all day in bed or in his chair, except he awakens to eat. Yesterday, Midodrine was started to help with orthostatic low BP. Today, I have stopped the statin and Claritin, in case he truly was not taking these at home, and our dosing of them has added to the confusion and lethargy. I told his that he needed to be cued on HOW TO WALK ("take a step with your left foot, now the right") by PT today. This suggests that his mentation is severely compromised now. I informed her that this is a sign of poor outcome and possibly significant dementia. I rquested that she reconsider whether he should be a Full Code, as he may survive a Code and then be in a vegetative state on a ventilator. She said that the dementia was news to her, but then added that his dementia may be the reason that they "argue alot at home". She did not want the 5 children to know about his poor mental state, and she will definitely be the one to make decisions about his medical care from here on. - Goals of Care Goals of care determinations: She will be considering if his Code status should change. For now, she wishes all aggressive medical care to continue. - Plan Plan: Continue present care plans. Repeat our discussion tomorrow, or before he is transferred for PT rehab to a SNF. - Time Spent on Advance Care Planning Time spent on advance care plannin min
[2018-05-18] MEDS: LISINOPRIL 5 MG TABLET PO SCH (21:05)
[2018-05-19 05:54] LABS: CALCIUM 9.3 mg/dL (8.5-10.3); CREATININE 0.9 mg/dL (0.6-1.2)
[2018-05-19] MEDS: ACETAMINOPHEN 325 MG TABLET PO PRN (06:10)
[2018-05-19] MEDS: APIXABAN 5 MG TABLET PO SCH (08:18)
[2018-05-19] MEDS: MIDODRINE 2.5 MG TABLET PO SCH ×2 (08:18→12:04)
[2018-05-19] MEDS: FERROUS SULFATE 325 MG TABLET PO SCH (08:18)
[2018-05-19] MEDS: MULTIVITAMIN TABLET PO SCH (08:18)
[2018-05-19] MEDS: DOCUSATE SODIUM 250 MG CAPSULE PO SCH ×2 (08:19→08:29)
[2018-05-19] MEDS: CARVEDILOL 3.125 MG TABLET PO SCH (08:19)
[2018-05-19] MEDS: POLYETHYLENE GLYCOL 3350 17 GM PACKET PO SCH ×2 (08:20→08:30)
[2018-05-19] MEDS: SODIUM CHLORIDE FLUSH 0.9% 10 ML SYRINGE IVP SCH (08:20)
[2018-05-19] MEDS: SENNA 8.6 MG TABLET PO SCH ×2 (08:20→08:30)
[2018-05-19] MEDS: ENZALUTAMIDE 40 MG PO SCH (08:29)
[2018-05-19] MEDS: CALCIUM CARB (OYSTER SHELL) 500 MG TABLET PO SCH (12:03)
[2018-05-19] MEDS: CHOLECALCIFEROL 400 UNIT TABLET PO SCH (12:03)
--- NOTE | 2018-05-19 13:23 | CT Report ---
Reason: Worsening lethargy, ? brain mets Procedure Date: 05/19/2018 Accession Number: [id number] / [id number] Procedure: CT - Head W/O CPT Code: FULL RESULT: EXAM: CT HEAD EXAM DATE: 05/19/2018 12:57 PM. CLINICAL HISTORY: Worsening lethargy. Question brain mets. COMPARISON: HEAD W/O 04/09/2018 11:26 PM. TECHNIQUE: Multiaxial CT images were obtained from the foramen magnum to the vertex. Reformats: Sagittal and coronal. IV contrast: None. In accordance with CT protocol optimization, one or more of the following dose reduction techniques were utilized for this exam: automated exposure control, adjustment of mA and/or KV based on patient size, or use of iterative reconstructive technique. FINDINGS: Parenchyma: No intraparenchymal hemorrhage. No evidence of mass, midline shift, or CT findings of infarction. [place]-white differentiation is distinct. Stable hypodensity in the periventricular white matter favoring chronic microvascular ischemic change. Extraaxial Spaces: Normal for age. No subdural or epidural collections identified. Ventricles: Stable, but enlarged at the upper limits of normal for the amount of parenchymal atrophy. Sinuses and Orbits: Imaged paranasal sinuses, orbits, and mastoids show no significant abnormality. Bones: No evidence of fracture or calvarial defect. Other: None. IMPRESSION: 1. No evidence of parenchymal mass, acute intracranial hemorrhage or acute infarction by nonenhanced CT. 2. Stable age-related atrophy. Size of the lateral ventricles remains upper limits of normal for the amount of parenchymal atrophy. RADIA
--- NOTE | 2018-05-19 14:16 | Discharge Plan ---
"Discharge Plan for SNF / [facility] - Discharge Plan And Transition Orders Disposition: 03 SNF DC/Xfer Condition: Poor Allergies and Adverse Reactions: Allergies Allergy/AdvReac Type Severity Reaction Status Date / Time Penicillins Allergy Rash Verified 05/13/18 16:10 - SNF / [facility] Transition Orders Admit to (Facility): [facility] Under the care of (Name): Dr Mery Olguin Discharge Diagnosis: 1) Acute systolic heart failure, NYHA Class III 2) Pleural effusion, S/P thoracentesis 3) Chronic Afib, on Eliquis 4) Lethargy and somnolence 5) Confusion and disorientation 6) Prostate CA, on Lupron and Xtandi and followed at [facility] 7) Hx of CAD 8) Code Status: Full Code Medicare Certification Statement: I certify that Post Hospital correction care is medically necessary on a continuing basis for any of the conditions for which she/he is receiving care during hospitalization. Notify PCP of admission and forward orders to primary provider for signature. Weight on admission and: Daily Call PCP immediately if weight increases by: 2 kg (if greater than 2 kg over 1 day) Other Notification Orders: Call PCP immediately if patient develops dyspnea, chest pain/tightness or edema. House Bowel Program: Yes Additional Bowel Program Orders: If no BM after 2 days, nurse may give M.O.M. 30ml PO PRN and/or ducolax Supp 1 NV and/or LUIS 250mg P.O., and/or senna 1-2 tabs PO. On day 3 nurse may give repeat above order until residents constipation is resolved. Annual Influenza Vaccine (between Mar 08 and October 05): Yes Two-step PPD per [facility] [id number] or approved exception documents: Yes Treatments & Other Orders: Daily PT and OT Oxygen Orders: 2L via n.c. continuously Medication Orders: PLEASE REFER TO THE DISCHARGE MEDICATION LIST. Insulin Orders?: No - Medications New Prescriptions: Carvedilol [Coreg] 3.125 mg PO BID #60 tablet Docusate Sodium 250Mg Capsule [Colace 250Mg Capsule] 250 - 500 mg PO DAILY #600 capsule Lisinopril [Zestril] 1.25 mg PO QPM #15 tablet Midodrine 2.5 mg PO TIDWM #90 tablet Polyethylene Glycol 3350 [Miralax] 17 gm PO DAILY #30 packet - Diet Type: Geriatric Texture: Regular Liquids: Thin May have monthly special meal: Yes - Therapies | Activity Therapy: Evaluation | Treat if indicated: PT, OT Rehabilitation Potential: Maximize functional status Activity: Activity as Tolerated Weight Bearing: Full Weight Assistance Devices: Walker Additional Instructions: Patient admitted with new leg edema and pulmonary edema, was diuresed and sx resolved quickly. Echo showed a new LV cardiomyopathy. Troponins were normal. Patient not a candidate for transfer for coronary angio due to mental status. He was more lethargic every day, despite having daily PT, having meds adjusted to prevent dehydration and hypotension, also statin and Claritin (home meds) stopped to decrease confusion and CT of head was unremarkable. The has been making medical decisions for him and is still following the patient's wishes that were documented in an Advanced Directive that state: full medical management, feeding tube if needed and Full Code Status. I updated her on his declining mentation, intermittent confusion and lethargy and she is considering a change of Code status. Follow Up: [facility] regarding the prostate CA."
[2018-05-19 16:11] VITALS: BP 108/62
--- NOTE | 2018-05-24 17:15 | DISCHARGE SUMMARY ---
Physician: Bessy Weinstein MD DATE OF ADMISSION: 05/14/2018 DATE OF DISCHARGE: 05/19/2018 HISTORY OF PRESENT ILLNESS: This is an 82-year-old white male with a history of prostate cancer, on Lupron and Xtandi. He also has chronic atrial fibrillation, coronary artery disease with remote FL in the . The patient presented with progressively worsening shortness of breath, especially over the previous 2-3 days, including orthopnea and leg edema. The gave most of the history because of his forgetfulness and fatigue. The patient was found to have pulmonary edema, and was admitted for management of CHF. HOSPITAL COURSE AND DISCHARGE DIAGNOSES 1. Acute systolic heart failure, [place] Heart Association class III. The patient had troponin lab test of 0.04 then 0.06, then 0.05, indicating no acute FL. His admission BNP was 1228. He had an Echo performed, and this showed severely impaired systolic function with global hypokinesis and EF of 25-30% The patient required IV Lasix, which was then transitioned to p.o. Lasix. He then developed several days of hypotension despite no further diuresis, required some iv saline volume replacement. By the time of discharge, he had no orthopnea or dyspnea on exertion. He was on new medications for his cardiomyopathy at the time of discharge. 2. Pleural effusion. The patient had a moderate pleural effusion that had a therapeutic and diagnostic thoracentesis done by the interventional radiologist, after 2 days of no Eliquis anticoagulant dosing. Subsequent chest x-rays showed minimal pleural effusion reaccumulation. 3. Chronic atrial fibrillation, on Eliquis. The patient had adjustment of his medications for the CHF using carvedilol. Those doses needed to be decreased to prevent atrial fibrillation pauses, and his eventual heart rate was in the 60s and 70s. The Eliquis was restarted the day after the thoracentesis. 4. Lethargy and somnolence. The patient appeared more lethargic every day during this admission, was able to awaken for meals and physical therapy only. His medications were adjusted to prevent dehydration and hypotension, and his sleeping medications, antianxiety p.r.n. medications, his statin and Claritin, home medications were all discontinued to decrease his lethargy. Despite this, his level of alertness remained abnormal, and he underwent a head CT, which showed no remarkable findings, except age-related atrophy. It was felt that his lethargy, weakness and somnolence were related to his underlying malignancy, advanced age, deconditioning and severe cardiomyopathy. He was able to perform exercises and walk with the assistance of a walker with cueing from a physical therapist, and he was therefore transferred for rehabilitation for strengthening to [facility]. 5. Confusion and disorientation. On admission, the patient was able to give appropriate answers and even joke. Each day, his orientation worsened, which compounded with his somnolence, suggesting significant underlying dementia. On the day of admission, the patient and his had confirmed that he wanted to be a FULL CODE and have full aggressive medical management, according to an Advanced Directive which was reviewed. After his mental status worsened, I explained to the that his condition was serious, probably irreversible and that she would need to make medical decisions as his closest next of kin. She was not able to decide whether she wanted to change his FULL CODE status, and wanted to consider that and verbalized that she did not want any of the 5 children to know about his worsening condition. The patient was kept FULL CODE, his medical management was continued, including treatment of the underlying prostate cancer. I spoke to Fauzia Griffith, of the [facility] Oncology [facility], who advised that his Xtandi could be continued since it was unlikely to be a cause of new cardiomyopathy or mental decline. 6. Prostate cancer. As described above, Lupron and Xtandi were to be continued. 7. History of coronary artery disease. The patient was not a candidate for repeat coronary angiography when the new systolic heart failure was found, because of his rapidly declining mental status. The patient had no symptoms of angina while here. His heart failure symptoms were adequately medically controlled, as described above. LABORATORY AND IMAGING: Reviewed and summarized above. ALLERGIES: PENICILLIN. MEDICATIONS AT THE TIME OF TRANSFER TO SNF: 1. Tylenol p.r.n. 2. Eliquis 5 mg b.i.d. 3. Calcium with vitamin D3 daily. 4. Xtandi 160 mg daily. 5. Iron 325 mg daily. 6. Lasix 20 mg daily was put on hold. 7. Lupron every 84 days was planned. 8. Multivitamin daily. 9. Potassium 10 mEq daily. 10. Simvastatin was stopped to decrease any potential for causing dementia. 11. Multivitamin with vitamin A, vitamin C, vitamin E, zinc, and copper daily. 12. Coreg 3.125 b.i.d. 13. Colace 250 mg daily. 14. Lisinopril 1.25 mg at bedtime. 15. Midodrine 2.5 mg t.i.d. 16. MiraLax daily. 17. Senokot daily. CONDITION AT DISCHARGE: Poor, but stable. PHYSICAL EXAMINATION VITAL SIGNS: Blood pressure 108/62, pulse of 64, in atrial fibrillation, afebrile, room air saturation 94%. HEENT: Somnolence, lower lid drooping bilaterally. Oral mucosa moist. NECK: Without JVD. No carotid bruits. CHEST: Diminished breath sounds at both bases. No rales. HEART: Sounds distant. No RV heave. ABDOMEN: Soft, nontender. No organomegaly. EXTREMITIES: Without edema. NEUROLOGIC: Obtunded, awakens to his name, is able to awaken for feeding himself and ambulating using a walker, oriented to person only. CODE STATUS: FULL CODE. FOLLOWUP: This will be determined after [facility]. Time required to complete this entire discharge, chart review, SNF orders, education for the patient 's : 60 minutes. TD: 05/24/2018 16:39 [email or web address]
== END 2018-05-19 16:28 | DRG 292 ==
LOC: ED 16:03 → OBS 18:06 → OBSVTOIN 05-14 09:11 → MS2 05-14 09:55
PROVIDERS: ADMIT Internal Medicine; ATTEND Internal Medicine
DX: R06.02 Shortness of breath (principal); I50.21 Acute systolic (congestive) heart failure; J90 Pleural effusion, not elsewhere classified; F05 Delirium due to known physiological condition; I48.2 Chronic atrial fibrillation; I27.22 Pulmonary hypertension due to left heart disease; C61 Malignant neoplasm of prostate; R53.83 Other fatigue; R40.0 Somnolence; F03.90 Unspecified dementia, unspecified severity, without behavioral disturbance, psychotic disturbance, mood disturbance, and anxiety; I95.2 Hypotension due to drugs; T50.0X5A Adverse effect of mineralocorticoids and their antagonists, initial encounter; Y92.230 Patient room in hospital as the place of occurrence of the external cause; F41.9 Anxiety disorder, unspecified; E78.5 Hyperlipidemia, unspecified; I25.10 Atherosclerotic heart disease of native coronary artery without angina pectoris; Z79.01 Long term (current) use of anticoagulants; Z79.899 Other long term (current) drug therapy; I25.2 Old myocardial infarction; Z87.01 Personal history of pneumonia (recurrent); Z87.891 Personal history of nicotine dependence
CPT/HCPCS: 32555; 36415; 70450; 71045; 80048; 80053; 81599; 82607; 82652; 82746; 83540; 83690; 83735; 83880; 84443; 84466; 84484; 85025; 85610; 85730; 87070; 87205; 89051; 93005; 93306; 94761; 96374; 99284

== ENCOUNTER 2018-05-21 18:36 | Outpatient (CLI) | payer MEDICARE | END 2018-05-21 18:37 | disposition critical access hospital (66) | LOC: EMS 18:36 | PROVIDERS: ATTEND Surgery | DX: R40.20 Unspecified coma (principal) | CPT/HCPCS: A0425; A0427 ==

== ENCOUNTER 2018-05-21 18:41 | Observation (INO) | payer MEDICARE ==
--- NOTE | 2018-05-21 19:41 | ED Physician Documentation ---
PD HPI ALTERED MENTAL STATUS - Stated complaint Stated Complaint: ALOC - Chief complaint Chief Complaint: Neuro - History obtained from History obtained from: Patient, Family, EMS, Caregiver - History of Present Illness Timing - onset: Today Timing - duration: Hours Timing - details: Gradual onset, Still present Quality / character: Less responsive (Patient was sent over from [facility] for progressively worsening mentation and responsiveness through the day today. His states he has been sleepy yesterday but was still talkative and interacting last night when she left him. Today he was poorly responsive. He was sent over from [facility] for further evaluation.) Associated symptoms: Dyspnea, General weakness. No: Fever, Headache, NVD Contributing factors: Anticoagulated, Recent med change, Other (CHF). No: Diabetic, COPD Basline status: Alert and oriented X 3, Ambulatory (He had been better able to take care of himself up to the last couple of months. He been having progressive weakness with some dyspnea but no chest pain over the last few weeks. He was recently seen in the hospital and diagnosed with CHF with initiation of treatment here in the hospital. He had gone to [facility] several days ago for rehab afterwards. He has been having increasing fatigue and less alertness over the last day and then much more noticeable today.) Treatment GENERAL SUPERINTENDENT: Accucheck, Airway management Recently seen: Emergency Dept, Admitted Review of Systems Unable to obtain: AMS, Other (info from [facility] caregivers and ) Constitutional: denies: Fever Nose: denies: Congestion Cardiac: reports: Pedal edema. denies: Chest pain / pressure Respiratory: reports: Dyspnea. denies: Cough GI: denies: Vomiting, Diarrhea Skin: denies: Rash Neurologic: reports: Generalized weakness, Altered mental status. denies: Headache PD PAST MEDICAL HISTORY - Past Medical History Cardiovascular: High cholesterol, Coronary artery disease, [place], Atrial fibrillation Respiratory: Pneumonia Neuro: Other Endocrine/Autoimmune: None GI: None : Other HEENT: Other Psych: None Musculoskeletal: None, Osteoarthritis Derm: None - Past Surgical History Past Surgical History: Yes General: Appendectomy Ortho: Arthroscopic surgery HEENT: Other - Present Medications Home Medications: Ambulatory Orders Medication Instructions Recorded Confirmed Acetaminophen [Tylenol Extra 500 mg PO Q8HR PRN 07/13/16 05/14/18 Strength] Multivitamin [Multiple Vitamins] 1 each PO DAILY 07/13/16 05/14/18 Apixaban [Eliquis] 5 mg PO BID 08/03/16 05/14/18 Ferrous Sulfate 325 mg PO DAILY 09/25/17 05/14/18 Vit A/Vit C/Vit E/Zinc/Copper 2 cap PO DAILY 11/25/17 05/14/18 [Preservision Areds Softgel] Calcium Carbonate/Vitamin D3 1 tab PO BID 05/14/18 05/14/18 [Calcium 600-Vit D3 400 Tablet] Enzalutamide [Xtandi] 160 mg PO DAILY 05/14/18 05/14/18 Leuprolide [Lupron] 22.5 mg IM Q84D 05/14/18 05/14/18 Carvedilol [Coreg] 3.125 mg PO BID #60 tablet 05/19/18 Docusate Sodium 250Mg Capsule 250 - 500 mg PO DAILY #600 capsule 05/19/18 [Colace 250Mg Capsule] Lisinopril [Zestril] 1.25 mg PO QPM #15 tablet 05/19/18 Midodrine 2.5 mg PO TIDWM #90 tablet 05/19/18 Polyethylene Glycol 3350 [Miralax] 17 gm PO DAILY #30 packet 05/19/18 Senna [Senokot] 8.6 - 17.2 mg PO DAILY tablet 05/19/18 - Allergies Allergies/Adverse Reactions: Allergies Allergy/AdvReac Type Severity Reaction Status Date / Time Penicillins Allergy Rash Verified 05/21/18 19:00 - Social History Does the pt smoke?: No Smoking Status: Never smoker Does the pt drink ETOH?: No Does the pt have substance abuse?: No - Immunizations Immunizations are current?: Yes Immunizations: TDAP current <10years - POLST Patient has POLST: No POLST Status: Full Code PD ED PE NORMAL - Vitals Vital signs reviewed: Yes - General General: Well developed/nourished. No: Alert and oriented X 3 (eyes open to painful stimuli. Nonverbal. Not following commands. Shallow breathing. ) - HEENT HEENT: Other (diminished but present gag reflex. ) - Neck Neck: Supple, no meningeal sign, No adenopathy, Other (JVD noted) - Cardiac Cardiac: No murmur - Respiratory Respiratory: No respiratory distress. No: Clear bilaterally (crackles at bases and bottom third. ) - Abdomen Abdomen: Non tender, Non distended. No: Normal bowel sounds (decreased) - Male Male : Deferred - Rectal Rectal: Deferred - Back Back: No CVA TTP - Derm Derm: Warm and dry. No: Normal color (pale) - Extremities Extremities: Other (2+ edema in both legs from knees down. ) - Neuro Neuro: No: Alert and oriented X 3 Eye Opening: To Pain Motor: Localizes to Pain Verbal: None GCS Score: 8 Results - Vitals Vitals: Vital Signs - 24 hr 05/21/18 05/21/18 05/21/18 18:54 20:26 20:34 Temperature 35.5 C L Heart Rate 105 H 95 79 Respiratory 17 19 Rate Blood Pressure 114/74 128/80 101/74 O2 Saturation 100 80 L 05/21/18 05/21/18 05/21/18 20:35 21:07 21:09 Temperature Heart Rate 85 85 90 Respiratory 16 20 Rate Blood Pressure 105/24 L O2 Saturation 87 L 05/21/18 21:31 Temperature Heart Rate 84 Respiratory 20 Rate Blood Pressure 116/76 O2 Saturation 83 L Oxygen O2 Source [With Activity] Nasal cannula O2 Source BIPAP Oxygen Flow Rate 15 - EKG (time done) 18:51 Rate: Rate (enter#) (98) Rhythm: Atrial fibrillation [place]: LAD QRS: Normal Ischemia: Normal ST segments. No: ST elevation c/w ischemia, ST depression - Labs Labs: Laboratory Tests 05/21/18 05/21/18 05/21/18 20:28 20:28 20:28 WBC 10.1 RBC 4.40 L Hgb 15.1 Hct 47.6 MCV 108.0 H MCH 34.2 H MCHC 31.7 L RDW 17.8 H Plt Count 321 MPV 8.3 Neut # (Auto) 8.6 H Lymph # (Auto) 0.7 L [place] # (Auto) 0.7 Eos # (Auto) 0.0 Baso # (Auto) 0.0 Absolute Nucleated RBC 0.01 Nucleated RBC % 0.1 Bld Gas Analysis Time Sample Site ABG pH ABG pCO2 ABG pO2 ABG HCO3 ABG Total CO2 ABG O2 Saturation ABG Base Excess Mack Test O2 Delivery Device FiO2 EPAP IPAP Sodium 134 L Potassium 5.2 H Chloride 91 L Carbon Dioxide 33 H Anion Gap 10.0 BUN 42 H Creatinine 0.9 Estimated GFR (MDRD) 80 L Glucose 145 H Lactic Acid 1.5 Calcium 9.7 Magnesium 2.1 Total Bilirubin 1.3 H AST 35 ALT 24 Alkaline Phosphatase 121 Troponin I B-Natriuretic Peptide Total Protein 8.0 Albumin 3.5 Globulin 4.5 H Albumin/Globulin Ratio 0.8 L Lipase 19 L Urine Color Urine Clarity Urine pH Ur Specific [place] Urine Protein Urine Glucose (UA) Urine Ketones Urine Occult Blood Urine Nitrite Urine Bilirubin Urine Urobilinogen Ur Leukocyte Esterase Urine RBC Urine WBC Ur Squamous Epith Cells Amorphous Sediment Urine Bacteria Urine Casts Ur Microscopic Review Urine Culture Comments 05/21/18 05/21/18 05/21/18 20:28 20:28 20:52 WBC RBC Hgb Hct MCV MCH MCHC RDW Plt Count MPV Neut # (Auto) Lymph # (Auto) [place] # (Auto) Eos # (Auto) Baso # (Auto) Absolute Nucleated RBC Nucleated RBC % Bld Gas Analysis Time 2052 Sample Site RIGHT RADIAL ABG pH 7.17 L* ABG pCO2 95 H* ABG pO2 63 L ABG HCO3 30.8 H ABG Total CO2 33.7 H ABG O2 Saturation 86 L* ABG Base Excess -1.6 Mack Test POSITIVE O2 Delivery Device BiPAP FiO2 100.00 EPAP 6 IPAP 12 Sodium Potassium Chloride Carbon Dioxide Anion Gap BUN Creatinine Estimated GFR (MDRD) Glucose Lactic Acid Calcium Magnesium Total Bilirubin AST ALT Alkaline Phosphatase Troponin I 0.05 B-Natriuretic Peptide 2390 H Total Protein Albumin Globulin Albumin/Globulin Ratio Lipase Urine Color Urine Clarity Urine pH Ur Specific [place] Urine Protein Urine Glucose (UA) Urine Ketones Urine Occult Blood Urine Nitrite Urine Bilirubin Urine Urobilinogen Ur Leukocyte Esterase Urine RBC Urine WBC Ur Squamous Epith Cells Amorphous Sediment Urine Bacteria Urine Casts Ur Microscopic Review Urine Culture Comments 05/21/18 21:06 WBC RBC Hgb Hct MCV MCH MCHC RDW Plt Count MPV Neut # (Auto) Lymph # (Auto) [place] # (Auto) Eos # (Auto) Baso # (Auto) Absolute Nucleated RBC Nucleated RBC % Bld Gas Analysis Time Sample Site ABG pH ABG pCO2 ABG pO2 ABG HCO3 ABG Total CO2 ABG O2 Saturation ABG Base Excess Mack Test O2 Delivery Device FiO2 EPAP IPAP Sodium Potassium Chloride Carbon Dioxide Anion Gap BUN Creatinine Estimated GFR (MDRD) Glucose Lactic Acid Calcium Magnesium Total Bilirubin AST ALT Alkaline Phosphatase Troponin I B-Natriuretic Peptide Total Protein Albumin Globulin Albumin/Globulin Ratio Lipase Urine Color YELLOW Urine Clarity HAZY Urine pH 5.5 Ur Specific [place] >=1.030 H Urine Protein 100 H Urine Glucose (UA) NEGATIVE Urine Ketones NEGATIVE Urine Occult Blood LARGE H Urine Nitrite NEGATIVE Urine Bilirubin NEGATIVE Urine Urobilinogen 0.2 (NORMAL) Ur Leukocyte Esterase NEGATIVE Urine RBC 11-25 H Urine WBC 4-5 Ur Squamous Epith Cells FEW Squamous Amorphous Sediment Marked Urine Bacteria Few Urine Casts 11-25 Hyaline Casts Ur Microscopic Review INDICATED Urine Culture Comments NOT INDICATED - Rads (name of study) chest xray Radiology: Prelim report reviewed, EMP read contemporaneously PD MEDICAL DECISION MAKING - ED course Complexity details: re-evaluated patient (He is having adequate oxygenation initially but his O2 sats are decreasing after a brief time in the ER. His breathing seems more shallow. We did back assisting for a few minutes while setting up CPAP. His oxygenation improved with CPAP. As talking with his and son about CODE STATUS and they state he is full code at this time. We will attempt the CPAP and if not improving well then he may need intubation. During this time, I also contacted the hospitalist for admission. Dr. Acuña came down to talk with the family. The patient was having good oxygenation but not very good ventilation with the CPAP. His blood gas showed respiratory insufficiency with an elevated CO2 level. However the family opted for no CODE STATUS and so will maintain the CPAP for now but did not do intubation.), considered differential (Patient had diminished alertness and shallow respirations. He did have findings consistent with CHF. He did not have a fever. However concern would be for infection versus respiratory failure versus electrolyte abnormalities or intracranial process. We will test along these lines.), d/w family - Critical Care Time(min): 45 Time Includes: Direct patient care, Coordinate care, Medical consult, Family consult for tx dec Data interpretation: Labs, Pulse ox, ABG, CXR Procedures excluded from critical care time: EKG Departure - Departure Disposition: ED Place in Observation Clinical Impression: Altered mental status Qualifiers: Altered mental status type: somnolence Qualified Code(s): R40.0 - Somnolence Congestive heart failure Qualifiers: Heart failure type: unspecified Heart failure chronicity: acute on chronic Qualified Code(s): I50.9 - Heart failure, unspecified Respiratory failure Qualifiers: Chronicity: acute Respiratory failure complication: hypoxia and hypercapnia Qualified Code(s): J96.01 - Acute respiratory failure with hypoxia Condition: Stable Record reviewed to determine appropriate education?: Yes Discharge Date/Time: 05/21/18 23:00
[2018-05-21] MEDS ORDERED: ALBUTEROL NEB 2.5 MG/3 ML INH STA (20:20)
[2018-05-21] MEDS ORDERED: FUROSEMIDE 40 MG/4 ML VIAL IVP STA ×2 (20:21→21:41)
[2018-05-21] MEDS ORDERED: ALBUTEROL NEB 2.5 MG/3 ML INH ONE (20:23)
[2018-05-21 20:34] LABS: BASOPHILS % (AUTO) 0.5 %; EOSINOPHILS % (AUTO) 0.1 %; HGB - HEMOGLOBIN 15.1 g/dL (14.0-18.0); LYMPHOCYTES # (AUTO) 0.7 10^3/uL (1.5-3.5); LYMPHOCYTES % (AUTO) 7.2 %; MEAN CORPUSCULAR HEMOGLOBIN 34.2 pg (27.0-31.0); MEAN CORPUSCULAR HGB CONC 31.7 g/dL (32.0-36.0); MEAN PLATELET VOLUME 8.3 fL (7.4-11.4); MONOCYTES # (AUTO) 0.7 10^3/uL (0.0-1.0); MONOCYTES % (AUTO) 7.3 %; NEUTROPHILS # (AUTO) 8.6 10^3/uL (1.5-6.6); NEUTROPHILS % (AUTO) 84.9 %; PLT - PLATELET COUNT 321 10^3/uL (130-450); RED CELL DISTRIBUTION WIDTH 17.8 % (12.0-15.0); WHITE BLOOD COUNT 10.1 x10^3/uL (4.8-10.8)
[2018-05-21 20:46] LABS: ALBUMIN 3.5 g/dL (3.2-5.5); ALBUMIN/GLOBULIN RATIO 0.8 (1.0-2.2); BILIRUBIN,TOTAL 1.3 mg/dL (0.2-1.0); CALCIUM 9.7 mg/dL (8.5-10.3); CREATININE 0.9 mg/dL (0.6-1.2); MAGNESIUM 2.1 mg/dL (1.7-2.8)
--- NOTE | 2018-05-21 20:56 | XRAY Report ---
Reason: dyspnea Procedure Date: 05/21/2018 Accession Number: [id number] / [id number] Procedure: XR - Chest 1 View X-Ray CPT Code: 40948 FULL RESULT: EXAM: CHEST RADIOGRAPHY EXAM DATE: 05/21/2018 08:43 PM. CLINICAL HISTORY: Dyspnea. COMPARISON: Chest radiography performed on 05/17/2018. TECHNIQUE: 1 view. FINDINGS: Lungs/Pleura: Small bilateral pleural effusions, having increased in size on the left in the interval. Worsening confluent parenchymal opacity in the left lung base with abrupt cut off of the air column in the left mainstem bronchus. Differential diagnosis includes left lower lobe pneumonia and left lower lobe atelectasis, or a combination of both. No pneumothorax. Worsening perihilar interstitial opacities in the lungs, with symmetrically low lung volumes. Mediastinum: Stable cardiomegaly and tortuous thoracic aorta. Other: Decreased mineralization of the bones with stable thoracic dextrocurvature and degenerative changes in the spine and shoulders. IMPRESSION: 1. Worsening left lower lobe parenchymal opacity with cut off of the air column in the left mainstem bronchus compatible with left lower lobe pneumonia, left lower lobe atelectasis or a combination of both. 2. Small bilateral pleural effusions, stable on the right and increasing on the left. 3. Worsening interstitial opacities in the perihilar regions of the lungs. 4. The remainder is stable. RADIA
[2018-05-21 20:57] LABS: ABG BASE EXCESS -1.6 mmol/L (-2.0-3.0); ABG HCO3 30.8 mmol/L (22.0-26.0); ABG PO2 63 mmHg (80-100); ABG TCO2 33.7 MMOL/L (21.0-29.0); ALLEN TEST POSITIVE
[2018-05-21 21:01] LABS: ABG OXYGEN SATURATION 86 % (94-98); ABG PCO2 95 mmHg (34-45); ABG PH 7.17 (7.35-7.45)
[2018-05-21 21:10] LABS: BILIRUBIN,URINE NEGATIVE (NEGATIVE); GLUCOSE, URINE (UA) NEGATIVE (NEGATIVE); KETONES,URINE (UA) NEGATIVE (NEGATIVE); LEUKOCYTE ESTERASE, URINE NEGATIVE (NEGATIVE); NITRITE,URINE NEGATIVE (NEGATIVE); OCCULT BLOOD,URINE LARGE (NEGATIVE); PH,URINE 5.5 PH (5.0-7.5); PROTEIN,URINE 100 mg/dL (NEGATIVE); UROBILINOGEN,URINE 0.2 (NORMAL) E.U./dL (NORMAL)
[2018-05-21 21:12] LABS: CLARITY,URINE HAZY (CLEAR)
[2018-05-21 21:20] LABS: AMORPHOUS SEDIMENT,UR Marked /LPF; BACTERIA,URINE Few /HPF (None Seen); SQUAMOUS EPITHELIAL CELL,UR FEW Squamous (<= Few)
[2018-05-21] MEDS ORDERED: SODIUM CHLORIDE FLUSH 0.9% 10 ML SYRINGE IVP PRN (21:49)
[2018-05-21] MEDS ORDERED: ONDANSETRON 4 MG/2 ML VIAL IVP PRN (21:49)
[2018-05-21] MEDS ORDERED: ONDANSETRON ODT 4 MG TABLET TL PRN (21:49)
[2018-05-21] MEDS ORDERED: MORPHINE SOL 10 MG/0.5 ML SYRINGE PO PRN (21:51)
[2018-05-21] MEDS ORDERED: LORazepam 0.5 MG TABLET SL PRN (21:52)
[2018-05-21] MEDS ORDERED: SCOPOLAMINE PATCH TOP PRN (21:52)
[2018-05-21] MEDS ORDERED: ACETAMINOPHEN 650 MG SUPP PR PRN (21:54)
--- NOTE | 2018-05-21 23:10 | HISTORY & PHYSICAL EXAMINATION ---
Chief Complaint - Chief Complaint Chief Complaint: altered mental status History of Present Illness - Admitted From [facility] - History Obtained From Records Reviewed: [facility] History obtained from: Dr. Mckeon, Exam Limitations: patient is obtunded - History of Present Illness HPI Comment/Other: This is an 82-year-old white male who is currently in acute rehab at a [facility] after being recently admitted and discharged. He was just discharged 2 days ago. With that admission he was felt to have acute on chronic systolic congestive heart failure with pleural effusions requiring thoracentesis. He became increasingly lethargic and more somnolent in spite of treatment. Became more confused. He has documented prostate cancer history with metastatic disease and is on Lupron as well as Xtandi. He was felt to be failing, and advanced care planning discussion was held with his . He was unable to make his own decisions. He had always stated that he wanted every thing done even over there was a less than 1% chance he would survive. With that admission it was increasingly more clear that this gentleman was failing, but that his and he had not recognized the symptoms. He had a [place]'s 8 prostate cancer with metastatic disease to the sacrum and all along his periaortic chain. His PSAs spiked over 60 in the past. He recently changed his care to our clinic here since his urologist . Transfer of care occurred in about November 2017. In those notes there is documentation that he has been failing. His anasarca has been getting worse and is attributed to probable lymphedema from lymph drainage or lack of lymph drainage along the periaortic chain and his surgeries. He is more tired, and more fatigued. This probably started around late summer or early Fall. He has been using a walker and has been relying on it more more. And he has been falling more and more. With his last admission he was admitted because of shortness of breath, orthopne a, and increasing leg edema. In the past Lasix would really help his leg edema. He was diuresed and had no edema or orthopnea, but in spite of that his level of alertness decreased every day. Echocardiogram was done May 14, 2018 and his ejection fraction was severely impaired at 25-30%. He does have a history of coronary artery disease. He had a large left atrium, a large right atrium, mild to moderate tricuspid regurgitation with severely abnormal right heart pressures. In retrospect, reviewing his chart, his leg edema was most likely from right-sided heart pressures and right-sided congestive heart failure as well as his lymphedema. Not only would he have severe woody edema but he would have scrotal edema that was severe. He was transferred to [facility] for rehabilitation. His was hoping that he would get strong enough to return back to home. She states that he continued to deteriorate. Not getting out of bed there, not doing physical therapy, and becoming sleepier and sleepier. 1 of their 5 children came to visit. He flew in from [place] today. There is no report of fever, chills. Just a gentleman who is getting sleepier and sleepier and less responsive. Today he was so unresponsive that the son was alarmed and EMS was called and he was brought to the emergency room. In the emergency room he is hypoxic to 83% on room air. Blood pressure 116/76 heart rate 84 respirations 20. He was obtunded. Hemoglobin is 15.1, white cell count 10.1. Sodium 134 potassium 5.2 BUN 42 creatinine 0.9. Lactic acid 1.5. He was placed on BiPAP, had a Smith placed, and given Lasix 40 IV push twice. In spite of that, he has not really woken up or responded. Blood gas after BiPAP showed a pH of 7.17, PCO2 95, PO2 63, bicarb 30.8, base excess -1.6. The next step was to intubate this patient since he was failing conservative management. I then sat down and spent 40 minutes with the son and his . It was clear that the patient had expressed fears of dying in the past. He avoided conversations about end-of-life issues because he did not want to face them. And he had already told his that "do not ever pull the plug on me". However, I carefully explained that this gentleman appeared to have a deteriorating status over the last few weeks if not months. Increasing falls, increasing sleepiness, increasing confusion. This resulted in the most recent admission. The oncology notes were also mentioned to them. The son was being very emotionally supportive of his mom; there was a new decision made. I explained that I do feel that he is in his twilight of life. I think that he is failing from his heart and his cancer. I do not have a reasonable expectation that he has more than 6 months. And I would not recommend extraordinary measures such as intubation or CPR. With the support of her son, his changed his CODE STATUS. She also wishes him to return to home. She does not want him to return to [facility]. History - Past Medical History Cardiovascular: reports: Congestive heart failure (Bilateral ventricle failure with severe right-sided heart failure as well as ejection fraction 25% on echo May 2018), High cholesterol, Coronary artery disease, [place], Atrial fibrillation (On Eliquis. Evaluated in ER multiple times for CT of head because of falls and falling flat on his face.) Respiratory: reports: Pneumonia Neuro: reports: Dementia (or memory loss developing over the last few months with CT head neg. No mets.), Other (Gait ataxia with multiple falls for over 2 years) Endocrine/Autoimmune: reports: None GI: reports: None : reports: Other (Prostate cancer, metastases to sacrum and periaortic chain, anasarca and scrotal some swelling gradually worsening over the year) HEENT: reports: Chronic hearing loss Psych: reports: None Musculoskeletal: reports: Osteoarthritis Derm: reports: None MRSA Hx?: No - Past Surgical History General: reports: Appendectomy Ortho: reports: Arthroscopic surgery HEENT: reports: Other - Family & Social History Family History: Mother: , Father: Family History Comment/Other: Mother in her 90s due to old age. Father in his 50s due to heart disease. 2 of his sons are . Living arrangement: [facility] Social History Notes: He is . They have been together over 60 years. He is retired, and they live in [place]. They live in their own home. He was recently hospitalized and discharged 2 days ago and transferred to a [facility] facility for [facility]. All of his children live out of state. He never smoked, rarely drinks alcohol. - Substance History Use: Uses substance without health or social issues: NONE Abuse: Recurrent use of substance despite neg consequences: NONE Dependence: Experiences withdrawal or developed tolerances: NONE - POLST Patient has POLST: Yes POLST Status: DNR Meds/Allgy - Home Medications Home Medications: Ambulatory Orders Medication Instructions Recorded Confirmed Acetaminophen [Tylenol Extra 500 mg PO Q8HR PRN 07/13/16 05/14/18 Strength] Multivitamin [Multiple Vitamins] 1 each PO DAILY 07/13/16 05/14/18 Apixaban [Eliquis] 5 mg PO BID 08/03/16 05/14/18 Ferrous Sulfate 325 mg PO DAILY 09/25/17 05/14/18 Vit A/Vit C/Vit E/Zinc/Copper 2 cap PO DAILY 11/25/17 05/14/18 [Preservision Areds Softgel] Calcium Carbonate/Vitamin D3 1 tab PO BID 05/14/18 05/14/18 [Calcium 600-Vit D3 400 Tablet] Enzalutamide [Xtandi] 160 mg PO DAILY 05/14/18 05/14/18 Leuprolide [Lupron] 22.5 mg IM Q84D 05/14/18 05/14/18 Carvedilol [Coreg] 3.125 mg PO BID #60 tablet 05/19/18 Docusate Sodium 250Mg Capsule 250 - 500 mg PO DAILY #600 capsule 05/19/18 [Colace 250Mg Capsule] Lisinopril [Zestril] 1.25 mg PO QPM #15 tablet 05/19/18 Midodrine 2.5 mg PO TIDWM #90 tablet 05/19/18 Polyethylene Glycol 3350 [Miralax] 17 gm PO DAILY #30 packet 05/19/18 Senna [Senokot] 8.6 - 17.2 mg PO DAILY tablet 05/19/18 - Allergies Allergies/Adverse Reactions: Allergies Allergy/AdvReac Type Severity Reaction Status Date / Time Penicillins Allergy Rash Verified 05/21/18 19:00 Review of Systems - Constitutional Constitutional: reports: Fatigue, Malaise, Weakness, Poor appetite, Other (Review of systems is from his . Patient unable to provide.). denies: Fever, Chills - Eyes Eyes: denies: Pain, Irritation, Vision loss, Dipolpia - Ears, Nose & Throat Ears, Nose & Throat: reports: Hearing loss. denies: Ear pain, Vertigo, Nasal pain, Nasal obstruction, Nasal congestion, Postnasal drainage, Sore throat - Cardiovascular Cariovascular: reports: Irregular heart rate, Edema, Exertional dyspnea, Decr. exercise tolerance. denies: Palpitations, Chest pain - Respiratory Respiratory: reports: SOB at rest, SOB with exertion. denies: Cough, Sputum production, Wheezing, Snoring - Gastrointestinal Gastrointestinal: reports: Constipation. denies: Abdominal pain, Abdominal distention, Diarrhea, Change in bowel habits, Rectal bleeding, Black stools, Bloody stools, Nausea, Bile emesis - Genitourinary Genitourinary: reports: Frequency, Urgency, Incontinence, Nocturia. denies: Dysuria, Hematuria, Flank pain - Musculoskeletal Musculoskeletal: reports: Back pain. denies: Muscle pain, Muscle aches, Stiffness - Integumentary Integumentary: denies: Rash, Pruritis, Lesions, Pigment changes - Neurological Neurological: reports: General weakness, Memory problems, Abnormal gait, Incoordination. denies: Focal weakness, Headache - Psychiatric Psychiatric: reports: Anxiety. denies: Depression, Suicidal - Endocrine Endocrine: denies: Polyuria, Polydypsia, Polyphagia, Intolerance to cold, Intolerance to heat - Hematologic/Lymphatic Hematologic/Lymphatic: reports: Anemia, Lymphadenopathy. denies: Bruising, Petechiae Prior Level of Functionality: He was able to get up in the morning and bathe himself and feed himself. just needed to be standby in the shower to make sure he did not fall. He has not driven for a couple of years. He was using a rolling walker more and more in the last year. In the last month he is so fatigued that he now spends most of his time in a wheelchair or in bed and is nonambulatory. He has had increasing memory problems. Getting up at night is frequent because of Lasix and he is exhausted because of it. has been main caregiver at home. She has been contemplating having to do private hire is because she is getting overwhelmed. Exam - Vital Signs Reviewed Vital Signs: Yes Vital Signs: Vital Signs x48h Temp Pulse Resp BP Pulse Ox 05/21/18 22:30 74 22 98/71 100 05/21/18 21:50 89 20 108/65 99 05/21/18 21:31 84 20 116/76 83 L 05/21/18 21:09 90 05/21/18 21:07 85 20 105/24 L 87 L 05/21/18 20:35 85 16 05/21/18 20:34 79 101/74 80 L 05/21/18 20:26 95 19 128/80 05/21/18 18:54 35.5 C L 105 H 17 114/74 100 - Physical Exam General Appearance: positive: No acute distress, Other (Responsive only to sternal rub, laying flat on his back with a BiPAP mask on, open mouth breathing) Eyes Bilateral: positive: PERRL, Other (Cannot assess extraocular movements because he cannot cooperate with exam) ENT: positive: Dry mucous membranes Neck: positive: Other (JVD at 45 degrees). negative: Stiff neck, Carotid bruit Respiratory: positive: Chest non-tender, Rales, Rhonchi. negative: Wheezes Cardiovascular: positive: Irregularly irregular, Systolic murmur, Other (He has a dull PMI that is slightly laterally displaced as well as a right ventricular lift). negative: Gallop/S4, Friction rub Peripheral Pulses: positive: 1+ Abdomen: positive: Non-tender, No distention, Other (Edema of lower abdominal wall). negative: Guarding, Rebound Skin: positive: Warm, Dry, Pallor Extremities: positive: Pedal edema Neurologic/Psychiatric: positive: Disoriented to person, Disoriented to place, Disoriented to time, Other (Responds only to sternal rub. Has spontaneous resp iration. Does withdraw extremities to noxious stimuli. No facial droop but faces slack and he is laying at 45 degrees with open mouth breathing) Reflexes: Bicep (R): 1+, Bicep (L): 1+, Knee (R): 1+, Knee (L): 1+, Ankle (R): 0, Ankle (L): 0 Babinski Reflex: Right: Absent, Left: Absent Conclusion/Plan - Problem List (1) Chronic respiratory failure with hypoxia and hypercapnia Conclusion/Plan: This is a gentleman who has documented coronary artery disease in the past, and a recent echocardiogram confirms severe left ventricular reduction in ejection fraction as well as elevated right heart pressures. He is combined cor pulmonale and left-sided heart failure. He is now in acute respiratory failure superimposed on a picture of chronic respiratory failure noted last admission. Plan: He has failed BiPAP and Lasix treatment in the emergency room. Blood gases are with acidosis, hypercapnia, hypoxia. Next step would be intubation. After long discussion with his regarding his end-stage heart disease, failing status over the last few months, and ongoing diagnosis of prostate cancer that is metastatic, patient is now transitioned to comfort measures only.No BiPAP At this time that will consist of Roxanol drops, scopolamine patch as needed, Ativan as needed, Tylenol need as needed, Zofran as needed. She does not want him to return to [facility] and would like him to be discharged to home with hospice. Her son is with her. She would like to get a list of private in- home hire's to begin that process to help her take care of him at home. (2) Metabolic encephalopathy Conclusion/Plan: Due to electrolyte imbalance, hypercapnia, and probable electrolyte/fluid disorder. Plan: Comfort measures (3) Acute on chronic systolic congestive heart failure, NYHA class 3 Conclusion/Plan: This is a gentleman who presents with a gradually decreasing cardiovascular endurance. It was already present months ago and acutely worsened over the last month or so. He has a documented bilateral ventricular failure with elevated pulmonary pressures on the right, and a decreased ejection fraction on the left. Coreg, lisinopril, were given at discharge. While he was on diuretics during his stay, he was not discharged on diuretics on transfer to the [facility] facility. Weight on discharge was 191.5 kg and weight right now is 89.3. Plan: Lasix as needed for comfort measures only (4) Prostate cancer metastatic to bone Conclusion/Plan: And intrapelvic lymph nodes Plan: No further therapy. Comfort measures only. POLST form filled out. He is DO NOT RESUSCITATE, comfort measures only. She says that this is in direct contrast to the form she filled out yesterday where she made an full code with full life support measures including tube feeds and intubation. Son is very supportive about this change in CODE STATUS. (5) Acute hyperkalemia Conclusion/Plan: Noted as part of his admitting labs with hyponatremia, elevated BUN. No treatment plan for this other than comfort measures only. - Lab Results Fish Bones: 05/21/18 20:28 05/21/18 20:28 - EKG Results EKG Interpreted Independently: Yes Core Measures - Anticipated LOS I expect patient to be DC'd or transferred within 96 hours.: Yes - DVT/VTE - Prophylaxis VTE/DVT Device ordered at admit?: No Not Ordered - Medical Reason: Not indicated (patient is comfort measures only)
[2018-05-21 23:54] VITALS: BP 111/67
--- NOTE | 2018-05-22 00:10 | CT Report ---
Reason: fall, on anticoag Procedure Date: 05/21/2018 Accession Number: [id number] / [id number] Procedure: CT - Head W/O CPT Code: FULL RESULT: EXAM: CT HEAD EXAM DATE: 05/21/2018 11:36 PM. CLINICAL HISTORY: Fall, on anticoag. COMPARISON: HEAD W/O 05/19/2018 12:45 PM. TECHNIQUE: Multiaxial CT images were obtained from the foramen magnum to the vertex. Reformats: Sagittal and coronal. IV contrast: None. In accordance with CT protocol optimization, one or more of the following dose reduction techniques were utilized for this exam: automated exposure control, adjustment of mA and/or KV based on patient size, or use of iterative reconstructive technique. FINDINGS: Parenchyma: No intraparenchymal hemorrhage. No evidence of mass, midline shift, or CT findings of infarction. [place]cido-white differentiation is distinct. There is mild to moderate chronic microvascular change in the deep white matter bilaterally. 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 Extraaxial Spaces: There is moderate age-related generalized cerebral volume loss. No subdural or epidural collections identified. Ventricles: Mild ventricular prominence is in proportion to the degree of atrophy and stable. No hydrocephalus. Sinuses and Orbits: Imaged paranasal sinuses, orbits, and mastoids show no significant abnormality. Bones: No evidence of fracture or calvarial defect. Other: A chronic fracture of the right orbital floor is unchanged. IMPRESSION: 1. No acute intracranial abnormality. No skull fracture. No significant change compared to 05/19/2018. 2. Age-related generalized cerebral volume loss and chronic microvascular change. 3. A slightly displaced chronic fracture of the right orbital floor is demonstrated. This is unchanged. RADIA
[2018-05-22] MEDS ORDERED: SODIUM CHLORIDE FLUSH 0.9% 10 ML SYRINGE IVP SCH (01:00)
--- NOTE | 2018-05-22 07:08 | DISCHARGE SUMMARY ---
"Discharge Summary Admit Date: 05/21/18 Discharge Date: 05/22/18 Discharging Provider: Belinda Carrillo MD Primary Care Provider: Elsy Bertrand MD Code Status: Do Not Attempt Resuscitation Condition at Discharge: Stable Discharge Disposition: 20 - DIAGNOSES Discharge Diagnoses with Status of Each Condition: 1. Chronic respiratory failure with hypoxia and hypercapnia 2. Metabolic encephalopathy 3. Acute on chronic systolic congestive heart failure, [place] Heart Association class III 4. 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 Acute hyperkalemia 6. Pneumonia - HPI History of Present Illness: Patient was in the hospital less than 12 hours. He was admitted from long-term facility with worsening lethargy. Patient was in end stages of his congestive heart failure and senescence, and treatment for metastatic prostate cancer. - CONSULTS | PROCEDURES Procedures: 1. Head CT no acute intracranial abnormality with age-related generalized cerebral volume loss and a slightly displaced chronic fracture of the right orbital floor demonstrated. Unchanged. 2. Worsening left lower lobe parenchymal opacity compatible with left lower lobe pneumonia. - HOSPITAL COURSE Hospital Course: He is an 82-year-old gentleman who was just admitted for congestive heart failure and discharged 2 days ago. With that admission he was felt to have acute on chronic systolic congestive heart failure with pleural effusions requiring thoracentesis. In spite of treatment he became increasingly lethargic and more somnolent. He has a documented prostate cancer history with metastatic disease to the sacrum and periaortic abdominal nodes. He has been failing for weeks if not months. After treatment here, he was transferred to the long-term facility for rehab. We did have extensive conversations with his loving spouse. With his previous admission she wanted him to be full code with all measures done including intubation and feeding tubes. After speaking to her with this admission, and describing that his prognosis was poor from an overall perspective. Son was now at the bedside and helping her make decisions. She changed him to DO NOT RESUSCITATE and comfort measures only. Overnight he received 1 small dose of Roxanol drops. And he passed peacefully away at 6:20 in the morning. - ALLERGIES Allergies/Adverse Reactions: Allergies Allergy/AdvReac Type Severity Reaction Status Date / Time Penicillins Allergy Rash Verified 05/21/18 19:00 - MEDICATIONS Home Medications: Ambulatory Orders Medication Instructions Recorded Confirmed Acetaminophen [Tylenol Extra 500 mg PO Q8HR PRN 07/13/16 05/14/18 Strength] Multivitamin [Multiple Vitamins] 1 each PO DAILY 07/13/16 05/14/18 Apixaban [Eliquis] 5 mg PO BID 08/03/16 05/14/18 Ferrous Sulfate 325 mg PO DAILY 09/25/17 05/14/18 Vit A/Vit C/Vit E/Zinc/Copper 2 cap PO DAILY 11/25/17 05/14/18 [Preservision Areds Softgel] Calcium Carbonate/Vitamin D3 1 tab PO BID 05/14/18 05/14/18 [Calcium 600-Vit D3 400 Tablet] Enzalutamide [Xtandi] 160 mg PO DAILY 05/14/18 05/14/18 Leuprolide [Lupron] 22.5 mg IM Q84D 05/14/18 05/14/18 Carvedilol [Coreg] 3.125 mg PO BID #60 tablet 05/19/18 Docusate Sodium 250Mg Capsule 250 - 500 mg PO DAILY #600 capsule 05/19/18 [Colace 250Mg Capsule] Lisinopril [Zestril] 1.25 mg PO QPM #15 tablet 05/19/18 Midodrine 2.5 mg PO TIDWM #90 tablet 05/19/18 Polyethylene Glycol 3350 [Miralax] 17 gm PO DAILY #30 packet 05/19/18 Senna [Senokot] 8.6 - 17.2 mg PO DAILY tablet 05/19/18 - PHYSICAL EXAM AT DISCHARGE General Appearance: positive: Other (Elderly gentleman, with no spontaneous pulse, respiration. No heartbeat felt for greater than a minute. Pupils fixed and dilated. Patient pronounced at 620 in the morning and his was notified. She is requesting release of remains to [facility]) - LABS Result Diagrams: 05/21/18 20:28 05/21/18 20:28"
[2018-05-22] MEDS ORDERED: POLYETHYLENE GLYCOL 3350 17 GM PACKET PO SCH (09:00)
== END 2018-05-22 06:20 | disposition expired ==
LOC: EDUNIT# → ED 18:41 → ICU 21:49 → MS2 23:18
PROVIDERS: ADMIT Specialist; ATTEND Specialist
DX: J96.22 Acute and chronic respiratory failure with hypercapnia (principal); J96.21 Acute and chronic respiratory failure with hypoxia; G93.41 Metabolic encephalopathy; C61 Malignant neoplasm of prostate; C77.2 Secondary and unspecified malignant neoplasm of intra-abdominal lymph nodes; C79.51 Secondary malignant neoplasm of bone; E87.5 Hyperkalemia; J18.9 Pneumonia, unspecified organism; R40.0 Somnolence; I50.23 Acute on chronic systolic (congestive) heart failure; I50.84 End stage heart failure; I48.91 Unspecified atrial fibrillation; I25.10 Atherosclerotic heart disease of native coronary artery without angina pectoris; Z91.81 History of falling; Z66 Do not resuscitate; Z79.01 Long term (current) use of anticoagulants
CPT/HCPCS: 36415; 36600; 51702; 70450; 71045; 80053; 81001; 82803; 83605; 83690; 83735; 83880; 84484; 85025; 93005; 94660; 96374; 96376; 99284; 99291; A9270; G0378; J3490; 81003; 87086; 96365; 99285